=== PATIENT | female | born 1985 | race Caucasian/White ===

== ENCOUNTER 2016-11-29 03:32 | Inpatient (IN) | payer OTHER ==
[~2016-11-29] VITALS: Ht 162.6 cm; Wt 67.3 kg
[~2016-11-29 03:32] MED LIST: ALBU1AER9 INH; DIPH25TA; PRENTAB26 PO; PYRI1TAB30
[2016-12-03] MEDS ORDERED: LACTATED RINGER'S 1000ML 1,000 ML IV PRN (08:51)
[2016-12-03] MEDS ORDERED: MISOPROSTOL 25 MCG TAB PV ONE (09:00)
--- NOTE | 2016-12-03 09:27 | Progress Note ---
Progress Note Date of Service December 03, 2016. Progress Note Admit note 31 F P1001 at 40.4 weeks with induction of labor for post dates. GBS negative. FHT Cat 1. cervix 2/50/-2/vertex/soft/posterior. EFW 7-7.5 lbs. Will start induction with Cytotec vaginally.
[2016-12-03] MEDS ORDERED: FERR1TAB23 PO (10:08)
[2016-12-03] MEDS ORDERED: CALC500C3 (10:12)
[2016-12-03] MEDS ORDERED: DOXY30TA PO (10:12)
[2016-12-03 10:15] VITALS: Ht 162.6 cm; Wt 67.3 kg
[2016-12-03 10:20] LABS: HEMATOCRIT 35.6 % (37-47); MEAN CORPUSCULAR HEMOGLOBIN 28.5 pg (25-34); MEAN PLATELET VOLUME 8.7 fL (7.4-10.4); PLATELET COUNT 223 K/uL (130-400); WHITE BLOOD COUNT 7.63 K/uL (4.8-10.8)
--- NOTE | 2016-12-03 10:35 | Progress Note ---
Progress Note Date of Service December 03, 2016. Progress Note Cytotec 25 mcg inserted in vagina. T Cat 1
[2016-12-03] MEDS ORDERED: LACTATED RINGER'S 1000ML 500 ML IV PRN ×2 (14:59→20:51)
[2016-12-03] MEDS ORDERED: OXYTOCIN 30 UNITS/500ML NSS IV PRN (15:00)
--- NOTE | 2016-12-03 15:00 | Progress Note ---
Progress Note Date of Service December 03, 2016. Progress Note cervix /2 FHT Cat 1 will start oxytocin to augment contractions
[2016-12-03] MEDS: LACTATED RINGER'S 1000ML 1,000 ML IV SCH ×2 (15:03→23:38)
--- NOTE | 2016-12-03 19:13 | Progress Note ---
Progress Note Date of Service December 03, 2016. Progress Note cervix -/-2 T Cat 1
[2016-12-03] MEDS ORDERED: BUPIVACAINE 0.25% 30 ML VIAL ONE (19:15)
[2016-12-03] MEDS ORDERED: EpHEDrine SULFATE INJ 50 MG/ML AMP ONE (19:15)
[2016-12-03] MEDS ORDERED: FENTANYL 2MCG/ML ROPIV 1.25MG/ML 100ML BAG EPI ONE (19:15)
[2016-12-03] MEDS ORDERED: FENTANYL CITRATE INJ 50 MCG/1 ML 2 ML VIAL ONE (19:16)
[2016-12-03] MEDS ORDERED: NALOXONE HCL INJ 1 MG in SODIUM CHLORIDE 0.9% 1000ML 1,000 ML IV PRN (20:51)
[2016-12-03] MEDS ORDERED: DiphenhydrAMINE HCL 50 MG/ML VIAL IV PRN (21:00)
[2016-12-03] MEDS ORDERED: ONDANSETRON INJ 2 MG/ML 2 ML VIAL IV PRN (21:00)
[2016-12-03] MEDS ORDERED: PROMETHAZINE HCL INJ 6.25 MG in SODIUM CHLORIDE 0.9% 50ML 50 ML IV PRN (21:00)
[2016-12-03] MEDS ORDERED: NALBUPHINE HCL INJ 10 MG/ML AMP IV PRN (21:00)
[2016-12-03] MEDS ORDERED: NALOXONE HCL INJ 0.4 MG/1 ML VIAL/CARP IV PRN (21:00)
[2016-12-03] MEDS ORDERED: EpHEDrine SULFATE INJ 50 MG/ML AMP IV PRN (21:00)
[2016-12-03] MEDS ORDERED: FENTANYL 2MCG/ML ROPIV 1.25MG/ML 100ML BAG EPI PRN (21:00)
--- NOTE | 2016-12-03 21:28 | Progress Note ---
Progress Note Date of Service December 03, 2016. Progress Note cervix -/-1 FHT Cat 1 AROM clear fluid
[2016-12-04] MEDS ORDERED: LACTATED RINGER'S 1000ML 1,000 ML IV SCH (01:48)
--- NOTE | 2016-12-04 01:56 | Vaginal Delivery Summary ---
Vaginal Delivery Summary Delivery Note live male over intact perineum LIANE with nuchal cord x1 reduced at delivery. Apgars 8/9 weight pending. Delayed cord clamping followed by cord blood collection. Spontaneous delivery of placenta. No tears. Final sponge and instrument count are correct. EBL 200 ml. Mom and baby stable.
[2016-12-04] MEDS ORDERED: SUPERCREAM 0.870 % 15GM JAR EXT PRN (02:00)
[2016-12-04] MEDS ORDERED: OXYTOCIN 30 UNITS/500ML NSS IV PRN (02:00)
[2016-12-04] MEDS ORDERED: BENZOCAINE 20% AER SPR 82.5 GM CAN EXT PRN (02:00)
[2016-12-04] MEDS ORDERED: LANOLIN OINT EXT PRN ×2 (02:00)
[2016-12-04] MEDS ORDERED: ACETAMINOPHEN 325 MG TAB PO PRN (02:00)
[2016-12-04] MEDS ORDERED: HYDROCORTISONE ACETATE 25 MG SUPP PR PRN (02:00)
--- NOTE | 2016-12-04 02:45 | Anesthesia Procedure Note ---
Anesthesia Epidural Removal Nt Date & Time December 04, 2016 at 02:46 Vital Signs Pain Intensity: 0.0 Notes Mental Status: alert / awake / arousable, participated in evaluation Nausea / Vomiting: adequately controlled Pain: adequately controlled Airway Patency, RR, SpO2: stable & adequate BP & HR: stable & adequate Hydration State: stable & adequate Neuraxial Anesthesia: was administered Anesthetic Complications: no major complications apparent, pt satisfied with anesthetic care Epidural: removed without complications, with tip intact
[2016-12-04 04:25] VITALS: BP 113/61; PULSE 89; TEMP 36.5
[2016-12-04] MEDS: IBUPROFEN 600 MG TAB PO PRN ×4 (04:26→19:56)
[2016-12-04 08:05] VITALS: BP 104/71; PULSE 84; TEMP 36.7; O2SAT 96
[2016-12-04] MEDS: DOCUSATE SODIUM 100 MG CAP PO SCH ×2 (08:26→19:56)
[2016-12-04] MEDS: PRENATAL VITAMIN TAB PO SCH (08:26)
[2016-12-04] MEDS: FERROUS SULFATE 325 MG TAB PO SCH (08:26)
[2016-12-04 11:15] VITALS: BP 123/77; PULSE 87; TEMP 36.8; O2SAT 98
[2016-12-04] MEDS: OXYCODONE/ACETAMINOPHEN 5-325 TAB PO PRN ×3 (11:43→18:30)
[2016-12-04 15:35] VITALS: BP 117/64; PULSE 86; TEMP 36.3
[2016-12-04] MEDS ORDERED: BISACODYL 5 MG TABEC PO SCH (20:00)
[2016-12-04 20:05] VITALS: BP 111/74; PULSE 88; TEMP 36.4; O2SAT 98
[2016-12-04 23:35] VITALS: BP 111/69; PULSE 86; TEMP 36.7; O2SAT 98
[2016-12-05] MEDS: IBUPROFEN 600 MG TAB PO PRN ×3 (00:33→12:26)
[2016-12-05] MEDS ORDERED: BISACODYL 10 MG SUPP PR PRN (07:00)
[2016-12-05 07:30] VITALS: BP 116/76; PULSE 73; TEMP 36.6; O2SAT 100
[2016-12-05] MEDS: PRENATAL VITAMIN TAB PO SCH (07:31)
[2016-12-05] MEDS: DOCUSATE SODIUM 100 MG CAP PO SCH (07:31)
[2016-12-05] MEDS: FERROUS SULFATE 325 MG TAB PO SCH (07:31)
[2016-12-05] MEDS ORDERED: MEASLES, MUMPS & RUBELLA VIRUS VIAL SQ. ONE (09:00)
[2016-12-05] MEDS ORDERED: DIPHTHERIA/TETANUS/PERTUSSIS 0.5 ML SYR/VIAL IM. ONE (09:00)
--- NOTE | 2016-12-05 10:12 | OB/GYN Progress Note ---
ADMINISTRATOR OF HOME HEALTH Progress Note Date of Service December 05, 2016. Subjective conversation w/ patient, physical exam Ambulation: ambulating normally Voiding: no voiding problems Passing Gas: Yes Diet Tolerance: Regular Diet Lochia: Moderate Feeding Type: Breast Feeding Review of Systems Constitutional: No chills, No fatigue, No fever, No problem reported, No sweats , No weakness, No weight loss Respiratory: No cough, No dyspnea at rest, No dyspnea on exertion, No hemoptysis, No problem reported, No shortness of breath, No sputum, No wheezing Cardiac: No PND, No chest pain, No claudication, No edema, No orthopnea, No palpitations, No problem reported Breast: No breast lump, No breast pain, No change in shape, No nipple discharge , No problem reported, No see HPI Abdomen: No GI bleeding, No constipation, No diarrhea, No nausea, No pain, No problem reported, No vomiting Female : No abnormal vaginal bleeding, No dysuria, No hematuria, No incontinence, No problem reported, No see HPI, No urinary frequency, No vaginal discharge Objective Vital Signs Date Time Temp Pulse Resp B/P Pulse Ox O2 Delivery O2 Flow Rate FiO2 12/05/16 07:30 Room Air 12/05/16 07:30 36.6 73 20 116/76 100 Room Air 12/04/16 23:35 36.7 86 16 111/69 98 Room Air 12/04/16 23:35 98 Room Air 12/04/16 20:05 Room Air 12/04/16 20:05 36.4 88 18 111/74 98 Room Air 12/04/16 15:35 36.3 86 18 117/64 Room Air 12/04/16 15:35 Room Air 12/04/16 11:15 36.8 87 20 123/77 98 Room Air Physical Exam General Appearance: WELL-APPEARING, WD/WN, NO APPARENT DISTRESS Respiratory/Chest: chest non-tender, lungs clear, normal breath sounds, no respiratory distress, no accessory muscle use Cardiovascular: regular rate, rhythm, no edema, no gallop, no JVD, no murmur Abdomen: normal bowel sounds, non tender, soft, no organomegaly, no pulsatile mass Fundus: Firm Extremities: normal range of motion, non-tender, normal inspection, no pedal edema, no calf tenderness Laboratory Results Last 24 Hours Test 12/05/16 06:54 Hemoglobin 9.0 g/dL Hematocrit 27.0 % Assessment and Plan Day Number: 1 Continue Routine Care: PPD #1 pt doing well wishes to go home today disch home with instructions
[2016-12-05] MEDS ORDERED: MTR600X PO (10:16)
--- NOTE | 2016-12-05 10:19 | Discharge Instructions ---
Discharge Instructions Date of Service December 05, 2016. Admission Reason for Admission: Induction Discharge Discharge Diagnosis / Problem: Discharge Goals Goal(s): Routine recovery after delivery Activity Recommendations Activity Limitations: as noted below ACTIVITY RECOMMENDATIONS: * Gradual return to full activity over the next 2-3 weeks. * No lifting - nothing heavier than baby over the next 2-3 weeks. * Do not engage in vigorous exercise, sexual activity or sports until cleared by your physician. * Do not drive or operate any motorized equipment until cleared by your physician. * You may shower/bathe daily. BREAST CARE: If you are not breast feeding: * Wear a supportive bra 24 hours a day for one to two weeks. * Avoid stimulating your breasts and nipples as much as possible during the first few weeks after delivery. * When taking a shower, have the warm water hit your back, not breasts. * When your breasts feel full, apply ice packs. Usually three to four times a day helps ease the discomfort. * Take a mild pain medication (Tylenol/Motrin) when you are uncomfortable. If breast feeding: * Use breast milk to lubricate nipples. Lansinoh cream may be used for sore nipples. You do not need to remove cream prior to breast feeding. If using a different brand of cream, check the label for directions regarding removal of cream prior to nursing. * Wear a supportive bra. * If having problems with breasts or breast feeding, call a clinical consultant or your health care provider. EPISIOTOMY CARE: After delivery, if you have an episiotomy (stitches), the following steps will ease discomfort and aid healing. * For the first 24 hours after delivery, place ice packs next to your episiotomy to help reduce swelling. * After the first 24 hour-period, sitz baths, either portable or in the tub, are suggested. A shower with a shower arm sprayed over the episiotomy may be comforting. * Jennyfer care should be done after each voiding and bowel movement. Squirt warm water from a plastic bottle over the perineum (region of the body between the anus and urinary opening) and pat dry. * Use Dermoplast to ease discomfort. Shake container. [place] directly over the episiotomy. * Place a Tucks on a clean sanitary pad next to your episiotomy. OVER THE COUNTER MEDICATION: * For discomfort or pain, you may use Acetaminophen (Tylenol), Ibuprofen (Advil ), or Naproxen (Aleve) following the package directions. * For constipation you may use Colace following the package directions. SPECIAL CARE INSTRUCTIONS: When you are discharged from the hospital, it is important for you to follow the instructions listed below: * During the first week at home, you should be able to care for yourself and your baby. In addition, the usual light household activities are encouraged. * Limit your activities to the way you feel. Do not try to clean the house or move furniture. Be sensible. * If you actively engage in sports and have done so up until the time of your delivery, you may resume these activities as soon as you feel able. This may take up to one month or even longer. Use good judgment. * Continue to take your vitamins for at least six weeks after the of your baby. * Your diet need not be limited unless you were on a special diet before your delivery. Breast-feeding mothers need around 2500 calories per day and at least 64-80 ounces of fluid per day (8 to 10 glasses). * You should eat foods from the four major food groups. Crash diets or fad diets are to be avoided. Eating lean meats, fresh fruits and vegetables, low-fat dairy products, high fiber foods and a regular exercise program, will help you get back to your pre- weight without putting your health at risk. * Constipation is sometimes a problem after delivery. Take a mild laxative as needed. If breast feeding, Milk of Magnesia is acceptable to use. You may use a suppository or Fleets enema if no episiotomy. * A daily shower or tub bath is suggested. Be sure to thoroughly and gently dry the perineum. * A bloody vaginal discharge will usually continue until around four weeks post . A small amount of bleeding may continue for as long as six weeks. Vaginal discharge changes from the bright red bleeding after delivery to pink then brownish and finally yellowish-pink before becoming white and disappearing. * Bleeding may increase with activity. Your first period may come in 4-8 weeks. If you are breast feeding, your period may be delayed even longer. * [place] (sex) can begin whenever both you and your partner feel comfortable and do not have any form of genital infection. It is recommended that you wait until after your return appointment and discuss with your physician. If you have questions, please talk to your health care practitioner. A condom should be used to prevent infection and . * Foreplay, gentle intercourse and lubrication is very important the first several times to prevent pain. A water-based lubricant such as K-Y jelly or Astroglide may be used. * Tampons may be used six weeks after delivery. * Douching should be avoided for 6 weeks after delivery. * If you have RH negative blood and your baby is RH positive, you will receive RHOGAM by injection prior to discharge. The nurse will give you a card to keep with you that has the date and place that you received RHOGAM after delivery. * During your care, you had a Rubella screen done to check for the presence of rubella antibodies in your blood. If your test was negative, you will receive a Rubella vaccine prior to discharge. This vaccine may cause a fever, soreness at the injection site and flu-like symptoms. If these symptoms persist, notify your health care practitioner. is not advised for three months after a Rubella vaccine. There is a higher chance of having a baby with defects if conceived within three months of getting the vaccine. * If you were discharged 24 hours from delivery or before 48 hours: Visiting nurses will come to your home 48 hours after discharge to assess you and your baby. The visiting nurse will meet with you while you are in the hospital to arrange a time and get directions to your home. * Verbalizes understanding of car seat law as reviewed with patient nursing. * Car Seat hand-out given and reviewed with patient by nursing. * Shaken baby information reviewed with patient by nursing. Call you doctor if: * Heavy bleeding (saturating several pads an hour) or passing clots the size of your fist. * A fever >101 degrees F (38.3 degrees C) on two occasions four hours apart and/or chills. * Unusual pain in the pelvic or vaginal areas. * "Baby Blues" lasting longer than two weeks. If you have any questions or concerns, call your health care practitioner at . FOLLOW-UP VISIT: * Please call the office at to schedule a 6 week examination. It is important you keep this appointment. * It is important for you to make arrangements for either yearly or twice yearly check-ups thereafter. . Current Hospital Diet Patient's current hospital diet: Regular OB Diet Discharge Diet Recommended Diet: Regular Diet Pending Studies Studies pending at discharge: no Medical Emergencies . Who to Call and When: Medical Emergencies: If at any time you feel your situation is an emergency, please call 911 immediately. . Non-Emergent Contact Non-Emergency issues call your: Specialist . . "Provider Documentation" section prepared by Carlos Posada. . VTE Core Measure Inpt VTE Proph given/why not?: Treatment not indicated
[2016-12-05 13:38] VITALS: BP_DIAS 76; PULSE 73; TEMP 36.6
[2016-12-23] MEDS ORDERED: IBUP-1450 PO (15:29)
[2016-12-25] MEDS ORDERED: IBUP-1450 PO (17:10)
[2016-12-25] MEDS ORDERED: METO-157 PO (17:10)
[2016-12-25] MEDS ORDERED: OXYC-57 PO (17:13)
== END 2016-12-05 14:20 | disposition home or self-care (01) | DRG 775 ==
LOC: C.LD 12-03 07:51 → C.OBG 12-04 04:35
PROVIDERS: ADMIT Obstetrics & Gynecology; ATTEND Obstetrics & Gynecology
PROC: 3E0P7GC Introduction of Other Therapeutic Substance into Female Reproductive, Via Natural or Artificial Opening (ICD-10-PCS; principal; 2016-12-03)
PROC: 10907ZC Drainage of Amniotic Fluid, Therapeutic from Products of Conception, Via Natural or Artificial Opening (ICD-10-PCS; principal; 2016-12-03)
PROC: 10E0XZZ Delivery of Products of Conception, External Approach (ICD-10-PCS; 2016-12-04)
DX: O48.0 Post-term pregnancy (principal); O69.81X0 Labor and delivery complicated by cord around neck, without compression, not applicable or unspecified; Z3A.40 40 weeks gestation of pregnancy; Z37.0 Single live birth

== ENCOUNTER 2016-12-25 05:27 | Observation (INO) | payer OTHER ==
[~2016-12-25] VITALS: Ht 162.6 cm; Wt 55.0 kg
[2016-12-25] VITALS (7 sets, daily range): BP systolic 102–119; BP diastolic 58–71; PULSE 76–100; TEMP 36.4–36.9; O2SAT 97–100; Ht 162.6 cm; Wt 55.0 kg
[~2016-12-25 05:27] MED LIST changes: -DIPH25TA; +FERR1TAB23 PO; +IBUP-1450 PO; -PYRI1TAB30
[2016-12-25] MEDS ORDERED: LACTATED RINGER'S 1000ML 1,000 ML IV SCH ×3 (06:00→17:15)
[2016-12-25] MEDS ORDERED: GENTAMICIN INJ 80 MG in DEXTROSE 5% 100ML 100 ML IV SCH ×2 (06:00→11:00)
[2016-12-25] MEDS ORDERED: CLINDAMYCIN 600 MG/54 ML D5W 50 ML IV SCH (06:00)
[2016-12-25] MEDS ORDERED: CLINDAMYCIN TOP (06:11)
[2016-12-25] MEDS ORDERED: AZLCR30 TOP (06:11)
[2016-12-25] MEDS ORDERED: FENTANYL CITRATE INJ 50 MCG/1 ML 2 ML VIAL ONE ×2 (06:48→08:33)
[2016-12-25] MEDS ORDERED: PROPOFOL IV EMULSION 10 MG/ML 20 ML VIAL IV ONE ×2 (06:48→08:37)
[2016-12-25] MEDS ORDERED: ONDANSETRON INJ 2 MG/ML 2 ML VIAL ONE ×2 (06:48→08:06)
[2016-12-25] MEDS ORDERED: MIDAZOLAM HCL 1 MG/ML 2ML VIAL ONE (06:48)
[2016-12-25] MEDS ORDERED: LIDOCAINE HCL 2% 2 ML VIAL (20MG/ML) ONE (06:48)
[2016-12-25] MEDS ORDERED: DEXAMETHASONE SOD INJ 4 MG/ML VIAL ONE (06:48)
[2016-12-25] MEDS ORDERED: MISOPROSTOL 200 MCG TAB PV STA (06:51)
--- NOTE | 2016-12-25 07:06 | History & Physical Bridge Note ---
H&P Re-Evaluation Bridge Note: I have examined the patient, reviewed the History & Physical and in the interval since the performance of the History & Physical I have noted the following changes of clinical significance: No changes noted
[2016-12-25] MEDS ORDERED: CARBOPROST TROMETHAMINE 250 MCG/ML AMP ONE (07:15)
[2016-12-25] MEDS ORDERED: ONDANSETRON INJ 2 MG/ML 2 ML VIAL IV PRN ×3 (07:45→11:30)
[2016-12-25] MEDS ORDERED: PROMETHAZINE HCL INJ 12.5 MG in SODIUM CHLORIDE 0.9% 50ML 50 ML IV PRN ×3 (07:45→11:30)
[2016-12-25] MEDS ORDERED: EpHEDrine SULFATE INJ 50 MG/ML AMP IV PRN ×2 (07:45→11:30)
[2016-12-25] MEDS ORDERED: FENTANYL CITRATE INJ 50 MCG/1 ML 2 ML VIAL IV PRN (07:45)
[2016-12-25] MEDS ORDERED: FLUMAZENIL 0.1 MG/1 ML 10 ML VIAL IV PRN ×2 (07:45→11:30)
[2016-12-25] MEDS ORDERED: NALOXONE HCL 0.4 MG/1 ML VIAL/CARP IV PRN ×2 (07:45→11:30)
[2016-12-25] MEDS ORDERED: ATROPINE SULFATE 0.1 MG/ML 5ML SYR IV PRN ×2 (07:45→11:30)
[2016-12-25] MEDS ORDERED: PHENYLEPHRINE 100MCG/ML 5ML SYR ONE (07:51)
[2016-12-25] MEDS ORDERED: EpHEDrine SULFATE INJ 50 MG/ML AMP ONE (08:01)
[2016-12-25] MEDS ORDERED: NEOSTIGMINE METHYLSULFATE 5 MG/5 ML SYR ONE (08:37)
[2016-12-25] MEDS ORDERED: CISATRACURIUM BESYLATE IV SOLN 2 MG/ML 10 ML VIAL ONE (08:37)
[2016-12-25] MEDS ORDERED: GLYCOPYRROLATE INJ 0.2 MG/ML VIAL ONE (08:37)
[2016-12-25] MEDS ORDERED: BUPIVACAINE/EPINEPHRINE 0.5% MPF 1:200,000 30 ML VIAL ONE (08:56)
--- NOTE | 2016-12-25 09:09 | DIAGNOSTIC IMAGING REPORT ---
INTRAOPERATIVE PELVIC ULTRASOUND NO CHARGE CLINICAL HISTORY: RETAINED PRODUCTS OF CONCEPTION COMPARISON STUDY: No previous studies for comparison. FINDINGS: Intraoperative guidance was provided by the x ray technologist, during a D&E.. There was no radiologist input. IMPRESSION: Intraoperative ultrasound guidance was provided by the x ray technologist. Electronically signed by: Aaron Christensen M.D. 12/25/2016 9:08 AM Dictated Date/Time: 12/25/2016 9:06 AM
[2016-12-25] MEDS ORDERED: METHYLERGONOVINE MALEATE 0.2 MG/ML AMP ONE (10:22)
[2016-12-25] MEDS ORDERED: METHYLERGONOVINE MALEATE 0.2 MG/ML AMP IM ONE (10:26)
[2016-12-25] MEDS ORDERED: OXYTOCIN INJ 10 UNITS/ML VIAL ONE (10:44)
[2016-12-25] MEDS ORDERED: CLINDAMYCIN PHOS 150 MG/ML 2 ML VIAL ONE (11:07)
[2016-12-25] MEDS ORDERED: FLOSEAL HEMOSTATIC MATRIX 10ML TOP ONE (11:17)
[2016-12-25] MEDS ORDERED: SODIUM CHLORIDE 0.9% INJ 10 ML VIAL ONE (11:26)
[2016-12-25] MEDS ORDERED: HYDROmorphone INJ 2 MG/ML SYR/VIAL ONE (11:26)
--- NOTE | 2016-12-25 11:26 | [facility] Post Operative Brief Note ---
Immediate Operative Summary Operative Date Dec 25, 2016. Pre-Operative Diagnosis Retained products of placenta Post-Operative Diagnosis Retained products of placenta, uterine perforation Procedure(s) Performed Suction, Dilation and Curettage Under Ultrasound Guidance,Operative Laparoscopy repair of uterine perforation (Dr. Montano) and intraoperative G. Surgery consultation, exploration of bowel (Dr. Shamika Oro), repair of cervical laceration Surgeon Dr. Cash Data Typist Surgeon(s) Leisa Machado, OR nurse Estimated Blood Loss 100 ML Findings Anteflexed 10 week size uterus, SALOONKEEPER adnexa Fluids (cc crystalloids) 2000 ml Specimens Permanent Specimen A: Retained products of Placenta Drains 200 ml urine Anesthesia GETA Complication(s) Uterine perforation, left fallopian tube injury Disposition Recovery Room / PACU
[2016-12-25] MEDS ORDERED: HYDROmorphone INJ 2 MG/ML SYR/VIAL IV PRN (11:30)
[2016-12-25] MEDS ORDERED: KETOROLAC TROMETHAMINE 30 MG/ML VIAL IV. PRN (11:30)
[2016-12-25] MEDS ORDERED: BISACODYL 10 MG SUPP PR PRN (11:30)
[2016-12-25] MEDS ORDERED: PROMETHAZINE HCL INJ 25 MG in SODIUM CHLORIDE 0.9% 50ML 50 ML IV PRN (11:30)
[2016-12-25] MEDS ORDERED: ACETAMINOPHEN 325 MG TAB PO PRN (11:30)
[2016-12-25] MEDS ORDERED: MEPERIDINE HCL 50 MG/ML CARP IV PRN ×2 (11:30)
[2016-12-25] MEDS ORDERED: IV FLUIDS COMPLETED PRN (12:15)
--- NOTE | 2016-12-25 12:28 | Anesthesiology Progress Note ---
Anesthesia Post Op Note Date & Time Dec 25, 2016 at 12:28 Vital Signs Pain Intensity: 3 Vital Signs Past 12 Hours Date Time Temp Pulse Resp B/P (MAP) Pulse Ox O2 Delivery O2 Flow Rate FiO2 12/25/16 12:09 36.4 76 16 108/69 100 Nasal Cannula 2 12/25/16 11:50 65 11 100 12/25/16 11:50 65 11 12/25/16 11:46 115/74 12/25/16 11:45 65 12 100 12/25/16 11:45 66 12 12/25/16 11:41 103/62 12/25/16 11:40 66 10 100 12/25/16 11:40 66 10 12/25/16 11:36 111/70 12/25/16 11:35 69 16 100 12/25/16 11:35 67 16 12/25/16 11:31 114/75 12/25/16 11:30 75 18 100 12/25/16 11:30 79 18 12/25/16 11:26 111/64 12/25/16 11:25 36.1 76 14 111/64 100 Mask 10 12/25/16 06:15 36.7 76 18 102/68 (79) 99 Room Air Notes Mental Status: alert / awake / arousable, participated in evaluation Pt Amnestic to Procedure: Yes Nausea / Vomiting: adequately controlled Pain: adequately controlled Airway Patency, RR, SpO2: stable & adequate BP & HR: stable & adequate Hydration State: stable & adequate Anesthetic Complications: no major complications apparent
[2016-12-25] MEDS ORDERED: HYDROmorphone INJ 1 MG/ML SYR ONE (12:38)
--- NOTE | 2016-12-25 13:25 | OPERATIVE REPORT ---
DATE OF OPERATION: 12/25/2016 PREOPERATIVE DIAGNOSIS: Uterine perforation. POSTOPERATIVE DIAGNOSIS: Same. OPERATIVE PROCEDURE: Diagnostic laparoscopy. SURGEON: Dr. Shamika Oro. IS CONSULTANT: Dr. Cash. ANESTHESIA: General endotracheal anesthesia. ESTIMATED BLOOD LOSS: Zero. IV FLUIDS: See Dr. Cash's dictation. SPECIMENS: See Dr. Cash's dictation. DRAINS: None. OPERATIVE FINDINGS: No evidence of bowel injury. INDICATIONS: Ms. Cruz is a 31-year-old woman who was undergoing a suction D&C post- for retained placenta. I was called intraoperative when there was evidence of uterine perforation with question of bowel injury. PROCEDURE: At the point where I entered the procedure the patient had already had laparoscopic trocars placed. Her uterine perforation was partially closed with Vicryl sutures by Dr. Cash. When I entered I did explore the left and sigmoid colon. The small bowel that was in the region of the pelvis and the cecum and right colon there was no evidence of any bowel injury. Uterine perforation did appear to have caused a left fallopian tube injury. This was being dealt with by Dr. Cash. The procedure was turned back over to Dr. Cash who then finished closure of the uterine perforation. Please see her dictation for the remainder of the procedure. I attest to the content of the Intraoperative Record and any orders documented therein. Any exception s are noted below.
[2016-12-25] MEDS ORDERED: ACETAMINOPHEN IV 100 ML IV PRN (14:00)
--- NOTE | 2016-12-25 15:03 | OB/GYN Progress Note ---
NEWS COMMENTATOR Progress Note Date of Service: Dec 25, 2016. Postop check Patient is seen and examined Feels well, little nausea, no vomiting Pain is under control with meds No CP/ SOB/ Dizziness/ VB/ Leg pain Not OOB yet Tolerating cips Explained about the surgery and findings Discussed about complication and what to expect and recovery She understood All questions were answered Date Time Temp Pulse Resp B/P (MAP) Pulse Ox O2 Delivery O2 Flow Rate FiO2 12/25/16 12:41 68 15 12/25/16 12:41 66 15 103/62 100 12/25/16 12:36 71 15 113/68 100 12/25/16 12:36 74 15 12/25/16 12:31 88 13 126/71 100 12/25/16 12:31 87 13 12/25/16 12:26 67 12 112/70 100 12/25/16 12:26 70 12 12/25/16 12:21 80 9 12/25/16 12:21 77 9 107/73 100 12/25/16 12:16 95 22 12/25/16 12:16 95 22 119/67 100 12/25/16 12:11 67 9 108/69 100 12/25/16 12:11 68 9 12/25/16 12:09 36.4 76 16 108/69 100 Nasal Cannula 2 12/25/16 12:06 79 14 12/25/16 12:06 79 14 110/76 100 12/25/16 12:01 67 12 12/25/16 12:01 67 12 105/66 100 12/25/16 11:56 87 11 12/25/16 11:56 88 11 111/80 100 12/25/16 11:51 68 12 12/25/16 11:51 69 12 105/61 100 12/25/16 11:50 65 11 100 12/25/16 11:50 65 11 12/25/16 11:46 115/74 12/25/16 11:45 65 12 100 12/25/16 11:45 66 12 12/25/16 11:41 103/62 12/25/16 11:40 66 10 100 12/25/16 11:40 66 10 12/25/16 11:36 111/70 12/25/16 11:35 69 16 100 12/25/16 11:35 67 16 12/25/16 11:31 114/75 12/25/16 11:30 75 18 100 12/25/16 11:30 79 18 12/25/16 11:26 111/64 12/25/16 11:25 36.1 76 14 111/64 100 Mask 10 12/25/16 06:15 36.7 76 18 102/68 (79) 99 Room Air PE: General: Alert, orientedx3, NAD CVS: S1S2 RRR Lungs: CTAB Abd: soft, NT, ND, BS+, Incisions C/D/I No VB Ext: NT, no edema, SCD's on AP: 31 yo female s/p 3 weeks ago with retained POC, s/p EUA, Suction, D&C and operative laparoscopy, repair of uterine perforation, exploration of bowels , pod#0 VSS Afebrile doing well Continue to routine postop care Encourage PO intake, may ambulate DC tonight or tomorrow am depending on how does All questions are answered
[2016-12-25] MEDS ORDERED: IBUP-1450 PO (17:10)
[2016-12-25] MEDS ORDERED: METO-157 PO (17:10)
--- NOTE | 2016-12-25 17:11 | Discharge Instructions ---
Discharge Instructions Date of Service Dec 25, 2016. Admission Reason for Admission: Retained Products Of Conception Discharge Discharge Diagnosis / Problem: Suction, D&C, Laparoscopy, exploration of bowels , repair of uterine perfora Discharge Goals Goal(s): Routine recovery after surgery Activity Recommendations Activity Limitations: as noted below Lifting Limitations: no more than 10 pounds Exercise/Sports Limitations: until after follow-up appointment May Resume Sexual Activity: after follow-up appointment Shower/Bathe: keep incision dry Driving or Machine Use: SPECIAL CARE INSTRUCTIONS: * Check temperature twice daily for one week. Report any elevation over 100.4 degrees Fahrenheit (38.0 degrees Celsius). * Call office in the next few days for return appointment. * You may experience some vaginal spotting and/or bleeding, this is normal for one or two weeks and should not alarm you. * Post-operative discomfort may consist of a sore throat, a "bloated" feeling and pain in the shoulders. These are normal symptoms which usually only last for two or three days. FOLLOW UP VISIT: Keep any scheduled doctor appointments. . Current Hospital Diet Patient's current hospital diet: Clear Liquid Diet Discharge Diet Recommended Diet: Regular Diet Procedures Procedures Performed: Suction, Dilation and Curettage Under Ultrasound Guidance,Operative Laparoscopy repair of uterine perforation (Dr. Montano) and intraoperative G. Surgery consultation, exploration of bowel (Dr. Shamika Oro), repair of cervical laceration Pending Studies Studies pending at discharge: no Medical Emergencies . Who to Call and When: Medical Emergencies: If at any time you feel your situation is an emergency, please call 911 immediately. . Non-Emergent Contact Non-Emergency issues call your: Primary Care Provider, Surgeon Call Non-Emergent contact if: temperature is above 100.5, your pain is not controlled, your pain is worsening, your pain is unusual for you, wound has increased drainage, wound has increased redness, wound has increased pain, you have any medication questions . . "Provider Documentation" section prepared by Juan M Cash. . VTE Core Measure Inpt VTE Proph given/why not?: Treatment not indicated
[2016-12-25] MEDS ORDERED: OXYC-57 PO (17:13)
[2016-12-25] MEDS: IBUPROFEN 600 MG TAB PO PRN (18:35)
[2016-12-25] MEDS: OXYCODONE/ACETAMINOPHEN 5-325 TAB PO PRN ×2 (18:36→22:50)
[2016-12-25] MEDS: DOCUSATE SODIUM 100 MG CAP PO SCH (19:24)
[2016-12-25 19:40] LABS: HEMATOCRIT 31.1 % (37-47)
[2016-12-25] MEDS ORDERED: SIMETHICONE 80 MG CHEW PO PRN (20:00)
[2016-12-25] MEDS ORDERED: METOCLOPRAMIDE HCL INJ 5 MG/ML 2 ML VIAL IV PRN (21:30)
[2016-12-26] VITALS: BP 101/63; PULSE 89; TEMP 37; O2SAT 98
[2016-12-26 03:15] VITALS: BP 97/63; PULSE 84; TEMP 37; O2SAT 99
[2016-12-26] MEDS: OXYCODONE/ACETAMINOPHEN 5-325 TAB PO PRN ×3 (03:29→12:35)
--- NOTE | 2016-12-26 05:29 | OB/GYN Progress Note ---
DIRECTOR OF COLLECTIONS Progress Note Date of Service: Dec 26, 2016. Patient is seen and examined. She feels well, no complaints. Mild soreness Pain is under control with oral meds. Ambulating without dizziness Voiding without difficulty Tolerating regular diet with out N&V Flatus neg Bleeding is minimal No fever/ chills/ CP/ SOB/ N&V/ Leg pain Pumping milk Date Time Temp Pulse Resp B/P (MAP) Pulse Ox O2 Delivery O2 Flow Rate FiO2 12/26/16 03:15 37.0 84 16 97/63 (74) 99 Room Air 12/26/16 00:00 37.0 89 16 101/63 (76) 98 Room Air 12/26/16 00:00 98 Room Air 12/25/16 19:25 36.9 93 18 104/58 (73) 98 Room Air 12/25/16 16:20 36.6 81 18 119/66 (83) 100 Room Air 81 12/25/16 16:20 100 Room Air 12/25/16 15:30 84 18 112/68 (83) 98 Room Air 12/25/16 14:40 36.4 78 22 105/64 (78) 99 Room Air 12/25/16 14:00 100 18 115/71 (86) 97 Room Air 12/25/16 13:25 99 Room Air 12/25/16 13:25 36.7 87 18 112/66 (81) 99 Room Air 12/25/16 12:41 68 15 12/25/16 12:41 66 15 103/62 100 12/25/16 12:36 71 15 113/68 100 12/25/16 12:36 74 15 12/25/16 12:31 88 13 126/71 100 12/25/16 12:31 87 13 12/25/16 12:26 67 12 112/70 100 12/25/16 12:26 70 12 12/25/16 12:21 80 9 12/25/16 12:21 77 9 107/73 100 12/25/16 12:16 95 22 12/25/16 12:16 95 22 119/67 100 12/25/16 12:11 67 9 108/69 100 12/25/16 12:11 68 9 12/25/16 12:09 36.4 76 16 108/69 100 Nasal Cannula 2 12/25/16 12:06 79 14 12/25/16 12:06 79 14 110/76 100 12/25/16 12:01 67 12 12/25/16 12:01 67 12 105/66 100 12/25/16 11:56 87 11 12/25/16 11:56 88 11 111/80 100 12/25/16 11:51 68 12 12/25/16 11:51 69 12 105/61 100 12/25/16 11:50 65 11 100 12/25/16 11:50 65 11 12/25/16 11:46 115/74 12/25/16 11:45 65 12 100 12/25/16 11:45 66 12 12/25/16 11:41 103/62 12/25/16 11:40 66 10 100 12/25/16 11:40 66 10 12/25/16 11:36 111/70 12/25/16 11:35 69 16 100 12/25/16 11:35 67 16 12/25/16 11:31 114/75 12/25/16 11:30 75 18 100 12/25/16 11:30 79 18 12/25/16 11:26 111/64 12/25/16 11:25 36.1 76 14 111/64 100 Mask 10 12/25/16 06:15 36.7 76 18 102/68 (79) 99 Room Air Last 24 Hours Test 12/25/16 19:30 Hemoglobin 9.7 g/dL Hematocrit 31.1 % PE: General: Alert, orientedx3, NAD CVS: S1S2 RRR Lungs; CTAB Abd: soft, NT, ND, BS+ good Incisions: Clean, dry, intact minimal spotting Ext; NT, no edema, SCD's on AP: 31 yo s/p EUA, Suction, D&C, Op. Laparoscopy, repair of uterine perf, exploration of bowels, pod# 1 VSS Afebrile doing well H&H stable, morning CBC pending Continue routine postop care Encourage ambulation, PO intake All questions were answered Instructions were given when to call D/C home after CBC and breakfast f/u in office
[2016-12-26] MEDS ORDERED: GENTAMICIN INJ 80 MG in DEXTROSE 5% 100ML 100 ML IV SCH (06:00)
[2016-12-26 06:51] LABS: MEAN CELL VOLUME 90.9 fL (80-100); MEAN CORPUSCULAR HEMOGLOBIN 29.6 pg (25-34); MEAN CORPUSCULAR HGB CONC 32.6 g/dl (32-36); MEAN PLATELET VOLUME 7.9 fL (7.4-10.4); PLATELET COUNT 220 K/uL (130-400); RED BLOOD COUNT 2.97 M/uL (4.2-5.4); WHITE BLOOD COUNT 6.63 K/uL (4.8-10.8)
[2016-12-26 06:55] VITALS: BP 98/61; PULSE 80; TEMP 37; O2SAT 98
[2016-12-26 07:32] LABS: BASO % 0.3 %; BASO ABS # 0.02 K/uL (0-0.2); COMPLETE YES; EOS % 0.8 %; IG% 0.2 %; LYMPH % 52.2 %; LYMPH ABS # 3.46 K/uL (1.2-3.4); MONO % 7.1 %; NEUT % 39.4 %
[2016-12-26] MEDS: DOCUSATE SODIUM 100 MG CAP PO SCH (08:55)
[2016-12-26] MEDS: IBUPROFEN 600 MG TAB PO PRN ×2 (08:57→12:36)
[2016-12-26 11:25] VITALS: BP 98/61; PULSE 80; TEMP 37; O2SAT 98
[2016-12-26 12:05] VITALS: BP 126/72; PULSE 74; TEMP 37; O2SAT 100
--- NOTE | 2016-12-26 12:58 | OPERATIVE REPORT ---
DATE OF OPERATION: 12/25/2016 PREOPERATIVE DIAGNOSIS: The patient is a 31-year-old G2, P2-0-0-2 status post vaginal delivery 3 weeks ago, retained placenta/products of conception. POSTOPERATIVE DIAGNOSIS: Same. PROCEDURES: Exam under anesthesia, suction D&C under ultrasound guidance, intraoperative pathology consult for frozen section and operative laparoscopy, repair of uterine perforation and intraoperative general surgery consultation and exploration of bowel and repair of cervical laceration. SURGEON: Dr. Cash. OFFICE MACHINERY OR EQUIPMENT INSTALLER: OR nurse Heavenly Flaherty and intraoperative consultation by Dr. Oor. ESTIMATED BLOOD LOSS: 100 ml. FLUIDS: 2000 mL of lactated Ringer's. SPECIMENS: Retained placenta and products of conception. DRAINS: 200 mL of urine. ANESTHESIA: General endotracheal. FINDINGS: Examination under anesthesia revealed stage I cystocele and rectocele, small cervix, anteverted anteflexed 10 week size uterus, nonpalpable adnexa. Intraoperative findings normal bowels. Normal right fallopian tube and ovary. Normal uterus except uterine perforation close to left cornua and normal left ovary and injury to the left fallopian tube. COMPLICATIONS: Uterine perforation and left fallopian tube injury. DESCRIPTION OF PROCEDURE: The patient was taken to the operating room where anesthesia was given without difficulty. She was placed in dorsal lithotomy position, prepared and draped in usual sterile fashion. Examination under anesthesia was done with the above findings. The air and hydronic balancing technician was in the room, performed pelvic/ abdominal ultrasound revealing an anteflexed uterus with retained products of conception on the posterior uterine wall close to the left cornu. Weighted speculum was placed in the patient's vagina. Cervix was visualized, grasped with single tooth tenaculum and then the cervical os was already dilated about 1cm. It was checked to be dilated until #31 Nazario dilators under ultrasound guidance. Then #10 plastic suction tip was used and introduced into the uterus under ultrasound guidance. The uterine cavity was suctioned x2, a minimal amount of white tissue was obtained suggesting products of conception. Then a small sharp curette was used to curette the uterine cavity. Tissues were sent for pathology. Ultrasound was being done and pile driving technician noted a tissue left side of the posterior uterine wall. Then the suction was repeated which brought a small membrane like tissue. This small piece was sent to the pathology for frozen section and we awaited for the response. The patient was stable and the bleeding was minimal. Pathologist called me back indicated that this tissue looked like a polyp but no trophoblasts which suggest retained products of conception. He was not sure what it is. He stated it could be fallopian tube and it did not look like intestine. He recommended laparoscopy. Then OR team was noted. The patient was covered with sterile drapes and the instruments were called for diagnostic laparoscopy. The patient was intubated with Anesthesiology team. The patient was prepared and draped in sterile fashion. All the instruments were counted. Her abdominal skin was prepped with ChloraPrep. The bladder was emptied with a straight catheter, 200 mL of urine was obtained. Then the Humi uterine manipulator was placed in the uterine cavity and gloves were changed. Attention was turned to the patient's abdomen where a 12 mm periumbilical skin incision was made and the subcuticular fat tissue was dissected off until the fascia was visualized. The fascia was grasped with 2 Alivia clamps, elevated, and entered sharply with the scalpel and then peritoneum was identified, entered bluntly with the tip of Hemostat and the sutures were placed on the fascial corners and then 12 mm Edna trocar was placed through the incision and the sutures were tied around the trocar and it was fixed. CO2 gas was started. Abdominal pressure was set to be 15 mmHg and then intraabdominal placement was confirmed with the scope. Upon inspection the bowels appeared to be normal. There was minimal to moderate blood in the pelvis. The patient was placed in the Trendelenburg position. Uterus was brought to the midline and then was noted to be a small, about 1 to 1.5 cm injury on the left posterior wall of the uterus close to the left cornu. It was minimally oozing blood and then the rest of the uterus was normal and the right fallopian tube and ovary were normal. Left ovary was normal. The left fallopian tube was noted to be thinned and there was a small part missing in the middle section about 1-2 cm , but it was hemostatic, no bleeding was noted. The decision was made to call general surgery consultation to check for the bowels. Meanwhile pelvis was irrigated with warm normal saline. The uterine perforation was repaired with 0 Polysorb EndoStitch in a running fashion and 2 sutures were placed and then Lapra-Ties were placed. There was still oozing on the corner of the side. Another EndoStitch was placed, but the tissues were very fragile and peeling off. I placed another gentle suture on the perforation site and then irrigated. FloSeal was placed over it to prevent further bleeding. Excellent hemostasis was achieved. Then general surgeon, Dr. Oro scrubbed in. She checked the bowels with a grasper and with no evidence of injury. She the scrubbed out. Then while nursing surgical services director was holding the camera, I completed the curettage from the vagina. Minimal tissue and small blood clots came out and uterine cry sensation was noted. This was done under laparoscopic guidance while watching to the uterus from above. The procedure was ended. There was noted to be her cervix very fragile and lacerated at the tenaculum site. It was repaired with 2-0 Vicryl with [id number] stitches and excellent hemostasis was achieved. Again gloves were changed. Attention was turned to the patient's abdomen. Pelvis and abdomen was checked again to be hemostatic. Decision was made to end the procedure. All the trocars were removed under the scope guidance and CO2 was emptied from the abdomen. The fascial incisions were repaired with 0 Vicryl with single interrupted stitches at the incision site with 0 Vicryl and the skin incisions were closed with 4-0 Monocryl in a subcuticular fashion. The patient was given IM Methergine, IV oxytocin and rectal Cytotec at the end of procedure. The patient remained stable all during surgery. Vital signs stable. She was cleaned and taken out from lithotomy position. She was brought to recovery room in stable condition. At the end of the procedure all sponge, needle and instrument counts were correct x3. The patient was given 900 mg of clindamycin and 80 mg of gentamicin before surgery and then she was given a second dose at the end of surgery. I attest to the content of the Intraoperative Record and any orders documented therein. Any exceptions are noted below. MTDD
== END 2016-12-26 13:00 | disposition home or self-care (01) ==
LOC: C.ACU 05:27 → C.OBG 11:29 → ENRESERV 13:05
PROVIDERS: ADMIT Obstetrics & Gynecology; ATTEND Obstetrics & Gynecology
DX: O73.0 Retained placenta without hemorrhage (principal); J45.30 Mild persistent asthma, uncomplicated; F33.1 Major depressive disorder, recurrent, moderate; Z79.899 Other long term (current) drug therapy

== ENCOUNTER 2017-01-01 21:41 | Emergency (ER) | payer OTHER ==
[~2017-01-01] VITALS: Ht 162.6 cm; Wt 53.9 kg
[~2017-01-01 21:41] MED LIST changes: +AZLCR30 TOP; +CLINDAMYCIN TOP; +METO-157 PO; +OXYC-57 PO
[2017-01-01] MEDS ORDERED: CEFTRIAXONE SOD INJ 1 GM ADDVIAL IV STA (22:11)
[2017-01-01] MEDS ORDERED: ONDANSETRON INJ 2 MG/ML 2 ML VIAL IV STA (22:11)
[2017-01-01] MEDS ORDERED: SODIUM CHLORIDE 0.9% 1000ML 1,000 ML IV STA ×2 (22:15)
[2017-01-01] MEDS ORDERED: CLINDAMYCIN IV 900 MG in DEXTROSE 5% 100ML 100 ML IV ONE (22:15)
--- NOTE | 2017-01-01 22:21 | DIAGNOSTIC IMAGING REPORT ---
CHEST ONE VIEW PORTABLE CLINICAL HISTORY: Sepsis dyspnea COMPARISON STUDY: No previous studies for comparison. FINDINGS: The bones soft tissues and hemidiaphragms are normal. The cardiomediastinal silhouette is normal. The lungs are clear. The pulmonary vasculature is normal. IMPRESSION: Negative chest. Electronically signed by: Dickson Boggs M.D. 01/01/2017 10:20 PM Dictated Date/Time: 01/01/2017 10:20 PM
[2017-01-01] MEDS ORDERED: OPTIRAY 320 IV PRN (22:30)
[2017-01-01] MEDS ORDERED: VNTHFA/IN INH (22:30)
[2017-01-01] MEDS ORDERED: [UNRECOGNIZED DRUG - CODE] TOP (22:30)
[2017-01-01 22:31] VITALS: O2SAT 98; Ht 162.6 cm; Wt 53.9 kg
[2017-01-01] MEDS ORDERED: POLY335019 PO (22:31)
[2017-01-01 22:34] LABS: BASO % 0.2 %; BASO ABS # 0.02 K/uL (0-0.2); COMPLETE YES; HEMATOCRIT 33.3 % (37-47); IG% 0.2 %; LYMPH % 21.8 %; LYMPH ABS # 2.41 K/uL (1.2-3.4); MEAN CELL VOLUME 89.3 fL (80-100); MEAN CORPUSCULAR HEMOGLOBIN 29.2 pg (25-34); MEAN CORPUSCULAR HGB CONC 32.7 g/dl (32-36); MEAN PLATELET VOLUME 8.3 fL (7.4-10.4); MONO % 5.9 %; NEUT % 68.9 %; PLATELET COUNT 295 K/uL (130-400); RED BLOOD COUNT 3.73 M/uL (4.2-5.4); WHITE BLOOD COUNT 11.05 K/uL (4.8-10.8)
[2017-01-01 22:39] LABS: URINE APPEARANCE CLEAR (CLEAR); URINE BILIRUBIN NEG (NEG); URINE COLOR YELLOW; URINE NITRITE NEG (NEG); URINE PH 6.5 (4.5-7.5); URINE SPECIFIC GRAVITY 1.022 (1.000-1.030); UROBILINOGEN NEG (NEG); ZZUR CULT IF INDIC CLEAN CATCH NO
[2017-01-01 22:42] LABS: MANUAL MICROSCOPIC REQUIRED? NO; REVIEW REQ? NO
[2017-01-01 22:43] LABS: ISTAT CREATININE 0.8 mg/dl (0.6-1.3); ISTAT HEMOGLOBIN 11.2 g/dl (12.0-16.0); ISTAT IONIZED CALCIUM 1.11 mmol/l (1.12-1.32)
[2017-01-01 22:45] LABS: INR 0.9 (0.9-1.1)
[2017-01-01 22:52] LABS: BUN/CREATININE RATIO 22.1 (10-20); CALCIUM 8.7 mg/dl (8.5-10.1); CREATININE 0.8 mg/dl (0.60-1.20)
[2017-01-01 22:55] LABS: ALB/GLOB RATIO 1.2 (0.9-2)
--- NOTE | 2017-01-01 23:52 | DIAGNOSTIC IMAGING REPORT ---
CT SCAN OF THE ABDOMEN AND PELVIS WITH IV CONTRAST CLINICAL HISTORY: Fever. Pelvic pain. Reported history of recent surgery and uterine perforation. COMPARISON STUDY: Abdominal CT dated 09/18/2011. TECHNIQUE: Following the IV administration of 93 cc of Optiray 320, CT scan of the abdomen and pelvis is performed from the lung bases to the proximal femora. Images are reviewed in the axial, sagittal, and coronal planes. IV contrast was administered without complication. Automated dose control exposure was utilized. CT DOSE: 262.23 mGy.cm FINDINGS: Lung bases: The heart is normal in size and without pericardial effusion. A fat-containing Bochdalek hernia is seen at the right lung base. The lung bases are otherwise clear. Liver: The contrast-enhanced liver is normal in size, contour, and attenuation. There is no intrahepatic biliary ductal dilatation. The hepatic veins and portal veins are patent. Gallbladder: Unremarkable. Spleen: Normal in size and attenuation. Pancreas: Unremarkable. Adrenal glands: Unremarkable. Kidneys: The contrast enhanced kidneys are normal in size and without hydronephrosis. The kidneys enhance symmetrically. There is a 4 mm nonobstructing left renal calculus. There are least 2 nonobstructing right renal calculi measuring up to 4 mm. Scattered subcentimeter cortical hypodensities likely represent cysts but are too small for definitive characterization. Abdominal vasculature: The abdominal aorta is normal in course and caliber. Bowel: The small bowel and colon are normal in course and caliber. The appendix is well-visualized and normal. Peritoneum: There is trace perihepatic fluid. Trace fluid is also seen in the right lower quadrant. No intraperitoneal free air is seen. No organized fluid collection is identified. Lymphadenopathy: None. Pelvic viscera: The bladder is normal as visualized. The uterus and adnexa are normal as visualized. There are small ovarian follicles. Skeletal structures: No lytic or blastic lesions are seen. IMPRESSION: 1. There are no acute infectious or inflammatory findings in the abdomen or pelvis. 2. The uterus is normal as visualized by CT. No fluid collection is identified in the pelvis. 3. There is trace perihepatic free fluid as well as trace fluid in the pelvis. 4. Small bilateral nonobstructing renal calculi. Electronically signed by: Kwan Navarro M.D. 01/01/2017 11:51 PM Dictated Date/Time: 01/01/2017 11:44 PM
[2017-01-02] MEDS ORDERED: DOXY100C2 PO (01:35)
[2017-01-02] MEDS ORDERED: CLIN300C10 PO (01:35)
[2017-01-02] MEDS ORDERED: DOXYCYCLINE HYCLATE 100 MG CAP PO ONE (01:45)
[2017-01-02] MEDS ORDERED: ONDANSETRON HOME PACK 4MG OD TAB PO ONE (01:45)
[2017-01-02] MEDS ORDERED: CLINDAMYCIN 150MG HOME PACK PO ONE (01:45)
[2017-01-02 02:11] VITALS: BP 118/75; PULSE 92; TEMP 36.5; O2SAT 99
--- NOTE | 2017-01-02 05:34 | EMERGENCY ROOM VISIT NOTE ---
History First contact with patient: 21:50 Chief Complaint: FEVER Stated Complaint: FEVER - 1 WEEK POSTOP History of Present Illness The patient is a 31 year old female who presents to the Emergency Room with complaints of abdominal pain with fever for the past day. Patient had a vaginal delivery one month ago and that resulted with retained products conception and during this procedure 1 week ago she had a uterine perforation with cervical laceration and fallopian tube injury with possible bowel injury. this was repaired by OB. Patient states since then her bleeding was subsiding and then today the bright red bleeding returned that was bright red with a fever and pain with a 100.6 temperature. Patient called the on-call OB was advised to come to the ER. Patient denies chest pain, dyspnea, cough, congestion, back pain, urinary symptoms. No intercourse since procedure. No instrumentation. Review of Systems See HPI for pertinent positives & negatives. A total of 10 systems reviewed and were otherwise negative. Past Medical/Surgical History Medical Problems: (1) Retained placenta after delivery without hemorrhage but with other complication Family History Blood coagulation disorder Diabetes mellitus Gallbladder disease Heart disease Hypertension Social History Smoking Status: Never Smoker Alcohol Use: none Drug Use: none Marital Status: Occupation Status: employed Current/Historical Medications Scheduled Azelaic Acid (Azelex), 1 TOP DAILY Clindamycin Hcl (Clindamycin Hcl), 1 TAB PO QID Clindamycin Phos (Clindamycin Phosphate), 1 APPLN TOP DAILY Doxycycline Hyclate (Vibramycin), 100 MG PO BID Ferrous Sulfate (Iron), 325 MG PO DAILY Multivit/Min/Iron/Fol Ac/Pren ( Vitamin), 1 TAB PO QAM Scheduled PRN Albuterol Hfa (Ventolin Hfa), 2 PUFFS INH Q4 PRN for Wheezing Ibuprofen (Motrin), 600 MG PO Q6H PRN for Pain Oxycodone/Acetaminophen 5MG/325MG (Percocet 5MG/325MG), 1-2 TABLETS PO Q4H PRN for Pain Polyethylene Glycol 3350 (Miralax), 17 GM PO DAILY PRN for Constipation Allergies Coded Allergies: Clavulanic Acid (Verified Allergy, Mild, RASH ITCHING, 01/01/17) Penicillins (Verified Allergy, Mild, AUGMENTIN-RASH ITCHING, 01/01/17) Amoxicillin (Unverified Allergy, Unknown, rash, 01/01/17) Cephalexin (Verified Allergy, Unknown, VOMITING DIARRHEA, 01/01/17) Codeine (Unverified Allergy, Unknown, vomiting, 01/01/17) per patient Physical Exam Vital Signs Date Time Temp Pulse Resp B/P (MAP) Pulse Ox O2 Delivery O2 Flow Rate FiO2 01/02/17 02:11 36.5 92 17 118/75 99 01/02/17 00:50 36.5 90 17 111/75 99 Room Air 01/01/17 23:16 37.0 91 18 108/71 100 Room Air 01/01/17 22:31 98 Room Air 01/01/17 21:45 37.2 98 20 111/69 97 Room Air Pain Rating (0-10): 4.0 Physical Exam VITALS: Vitals are noted on the nurse's note and reviewed by myself. Vital signs stable. GENERAL: Pleasant female, in no acute distress, nondiaphoretic, well-developed well-nourished. SKIN: The skin was without rashes, erythema, edema, or bruising. There is no tenting of the skin. Capillary reflex less than 2 seconds. HEAD: Normocephalic atraumatic. EARS: External auditory canals clear, tympanic membranes pearly stone without erythema or effusion bilaterally. EYES: Pupils equal round and reactive to light and accommodation. Conjunctivae without injection, sclerae without icterus. Extraocular movements intact. NOSE: Patent, turbinates without inflammation or discharge. No sinus tenderness. MOUTH: Mucous membranes moist. Pharynx without erythema or exudate. Uvula midline. Airway patent. Tongue does not deviate. NECK: Supple without nuchal rigidity. No lymphadenopathy. No thyromegaly. Cervical spine is nontender. No JVD. HEART: Regular rate and rhythm without murmurs gallops or rubs. LUNGS: Clear to auscultation bilaterally without wheezes, rales or rhonchi. No dullness to percussion. No retractions or accessory muscle use. ABDOMEN: Positive bowel sounds x 4. Normal tympanic percussion. Soft, incisional site intact without signs of infection, tender to palpation lower abdomen, no CVA tenderness, without masses or organomegaly. Escobar sign negative. No guarding or rebound tenderness. exam: Normal external female genitalia, no blood in the vault, cervical sutures intact with no discharge or odor, digital proofing and platemaker present MUSCULOSKELETAL: No muscle atrophy, erythema, or edema noted. NEURO: Patient was alert and oriented to person place and time. Normal sensation to light and sharp touch. No focal neurological deficits. Medical Decision & Procedures Laboratory Results 01/01/17 22:25 Red Blood Count 3.73, Mean Corpuscular Volume 89.3, Mean Corpuscular Hemoglobin 29.2, Mean Corpuscular Hemoglobin Concent 32.7, Mean Platelet Volume 8.3, Neutrophils (%) (Auto) 68.9, Lymphocytes (%) (Auto) 21.8, Monocytes (%) (Auto) 5.9, Eosinophils (%) (Auto) 3.0, Basophils (%) (Auto) 0.2, Neutrophils # (Auto) 7.62, Lymphocytes # (Auto) 2.41, Monocytes # (Auto) 0.65, Eosinophils # (Auto) 0.33, Basophils # (Auto) 0.02 01/01/17 22:25 Test 01/01/17 22:25 01/01/17 22:27 01/01/17 22:31 White Blood Count 11.05 K/uL (4.8-10.8) Red Blood Count 3.73 M/uL (4.2-5.4) Hemoglobin 10.9 g/dL (12.0-16.0) Hematocrit 33.3 % (37-47) Mean Corpuscular Volume 89.3 fL (80-100) Mean Corpuscular Hemoglobin 29.2 pg (25-34) Mean Corpuscular Hemoglobin Concent 32.7 g/dl (32-36) Platelet Count 295 K/uL (130-400) Mean Platelet Volume 8.3 fL (7.4-10.4) Neutrophils (%) (Auto) 68.9 % Lymphocytes (%) (Auto) 21.8 % Monocytes (%) (Auto) 5.9 % Eosinophils (%) (Auto) 3.0 % Basophils (%) (Auto) 0.2 % Neutrophils # (Auto) 7.62 K/uL (1.4-6.5) Lymphocytes # (Auto) 2.41 K/uL (1.2-3.4) Monocytes # (Auto) 0.65 K/uL (0.11-0.59) Eosinophils # (Auto) 0.33 K/uL (0-0.5) Basophils # (Auto) 0.02 K/uL (0-0.2) RDW Standard Deviation 47.5 fL (36.4-46.3) RDW Coefficient of Variation 14.3 % (11.5-14.5) Immature Granulocyte % (Auto) 0.2 % Immature Granulocyte # (Auto) 0.02 K/uL (0.00-0.02) Prothrombin Time 10.0 SECONDS (9.0-12.0) Prothromb Time International Ratio 0.9 (0.9-1.1) Activated Partial Thromboplast Time 25.7 SECONDS (21.0-31.0) Partial Thromboplastin Ratio 1.0 Urine Color YELLOW Urine Appearance CLEAR (CLEAR) Urine pH 6.5 (4.5-7.5) Urine Specific Endeavor 1.022 (1.000-1.030) Urine Protein NEG (NEG) Urine Glucose (UA) NEG (NEG) Urine Ketones NEG (NEG) Urine Occult Blood NEG (NEG) Urine Nitrite NEG (NEG) Urine Bilirubin NEG (NEG) Urine Urobilinogen NEG (NEG) Urine Leukocyte Esterase NEG (NEG) Urine WBC (Auto) 1-5 /hpf (0-5) Urine RBC (Auto) 0-4 /hpf (0-4) Urine Hyaline Casts (Auto) 0 /lpf (0-5) Urine Epithelial Cells (Auto) 5-10 /lpf (0-5) Urine Bacteria (Auto) NEG (NEG) Est Creatinine Clear Calc Drug Dose 87.5 ml/min Estimated GFR () 114.7 Estimated GFR (Non- 98.9 BUN/Creatinine Ratio 22.1 (10-20) Calcium Level 8.7 mg/dl (8.5-10.1) Total Bilirubin 0.2 mg/dl (0.2-1) Aspartate Amino Transf (AST/SGOT) 24 U/L (15-37) Alanine Aminotransferase (ALT/SGPT) 35 U/L (12-78) Alkaline Phosphatase 93 U/L (45-117) Total Protein 7.1 gm/dl (6.4-8.2) Albumin 3.8 gm/dl (3.4-5.0) Globulin 3.3 gm/dl (2.5-4.0) Albumin/Globulin Ratio 1.2 (0.9-2) Bedside Lactic Acid Venous 0.53 mmol/L (0.90-1.70) Bedside Hemoglobin 11.2 g/dl (12.0-16.0) Bedside Hematocrit 33 % (37-47) Bedside Sodium 139 mEq/L (135-144) Bedside Potassium 4.1 mEq/L (3.3-5.0) Bedside Chloride 102 mEq/L (101-112) Bedside Total CO2 24 mEq/l (24-31) Anion Gap 18.0 mmol/L (16-25) Bedside Blood Urea Nitrogen 17 mg/dl (7-18) Bedside Creatinine 0.8 mg/dl (0.6-1.3) Bedside Glucose (other) 105 mg/dl (70-99) Bedside Ionized Calcium (Sumit) 1.11 mmol/l (1.12-1.32) Medications Administered Medications (Trade) Dose Ordered Sig/Quan Route Start Time Stop Time Status Last Admin Dose Admin Clindamycin Phosphate 900 mg/ Dextrose 106 ml @ 100 mls/hr ONE ONCE IV 01/01/17 22:15 01/01/17 23:18 DC 01/01/17 23:16 100 MLS/HR Ceftriaxone Sodium (Rocephin Inj) 1 gm NOW STAT IV 01/01/17 22:11 01/01/17 22:13 DC 01/01/17 22:15 1 GM Ondansetron HCl (Zofran Inj) 4 mg NOW STAT IV 01/01/17 22:11 01/01/17 22:13 DC 01/01/17 22:15 4 MG Sodium Chloride 1,000 ml @ 999 mls/hr Q1H1M STAT IV 01/01/17 22:15 01/01/17 23:15 DC 01/01/17 23:16 999 MLS/HR Sodium Chloride 1,000 ml @ 125 mls/hr Q8H STAT IV 01/01/17 22:15 01/02/17 02:35 DC 01/01/17 22:15 125 MLS/HR Doxycycline Hyclate (Vibramycin Cap) 100 mg ONE ONCE PO 01/02/17 01:45 01/02/17 01:46 DC 01/02/17 02:04 100 MG Clindamycin HCl (Cleocin 150MG Home Pack) 1 homepack UD ONCE PO 01/02/17 01:45 01/02/17 01:46 DC 01/02/17 02:04 1 HOMEPACK Ondansetron HCl (ZOFRAN ODT 4MG Home Pack) 1 homepack UD ONCE PO 01/02/17 01:45 01/02/17 01:46 DC 01/02/17 02:04 1 HOMEPACK ED Course Prior records/ancillary studies reviewed. Triage Nursing notes reviewed. Additional history obtained from family The patient's history was concerning for abdominal pain after recent surgery that resulted with a uterine perforation for retained proximal conception. Differential diagnosis: Etiologies such as postsurgical complication, endometritis, appendicitis, diverticulitis, PUD, biliary pathology, UTI, pancreatitis, obstruction, mesenteric ischemia, aortic pathology, infections, inflammatory bowel disease, renal colic, as well as others were entertained. Physical examination findings: As above. ER treatment provided: IV fluids, clindamycin, Rocephin On reassessment the patient felt better. Diagnostics interpreted by me: The labs revealed mild leukocytosis, negative urine Imaging studies: CT SCAN OF THE ABDOMEN AND PELVIS WITH IV CONTRAST CLINICAL HISTORY: Fever. Pelvic pain. Reported history of recent surgery and uterine perforation. COMPARISON STUDY: Abdominal CT dated 09/18/2011. TECHNIQUE: Following the IV administration of 93 cc of Optiray 320, CT scan of the abdomen and pelvis is performed from the lung bases to the proximal femora. Images are reviewed in the axial, sagittal, and coronal planes. IV contrast was administered without complication. Automated dose control exposure was utilized. CT DOSE: 262.23 mGy.cm FINDINGS: Lung bases: The heart is normal in size and without pericardial effusion. A fat-containing Bochdalek hernia is seen at the right lung base. The lung bases are otherwise clear. Liver: The contrast-enhanced liver is normal in size, contour, and attenuation. There is no intrahepatic biliary ductal dilatation. The hepatic veins and portal veins are patent. Gallbladder: Unremarkable. Spleen: Normal in size and attenuation. Pancreas: Unremarkable. Adrenal glands: Unremarkable. Kidneys: The contrast enhanced kidneys are normal in size and without hydronephrosis. The kidneys enhance symmetrically. There is a 4 mm nonobstructing left renal calculus. There are least 2 nonobstructing right renal calculi measuring up to 4 mm. Scattered subcentimeter cortical hypodensities likely represent cysts but are too small for definitive characterization. Abdominal vasculature: The abdominal aorta is normal in course and caliber. Bowel: The small bowel and colon are normal in course and caliber. The appendix is well-visualized and normal. Peritoneum: There is trace perihepatic fluid. Trace fluid is also seen in the right lower quadrant. No intraperitoneal free air is seen. No organized fluid collection is identified. Lymphadenopathy: None. Pelvic viscera: The bladder is normal as visualized. The uterus and adnexa are normal as visualized. There are small ovarian follicles. Skeletal structures: No lytic or blastic lesions are seen. IMPRESSION: 1. There are no acute infectious or inflammatory findings in the abdomen or pelvis. 2. The uterus is normal as visualized by CT. No fluid collection is identified in the pelvis. 3. There is trace perihepatic free fluid as well as trace fluid in the pelvis. 4. Small bilateral nonobstructing renal calculi. Electronically signed by: Kwan Navarro M.D. 01/01/2017 11:51 PM Dictated Date/Time: 01/01/2017 11:44 PM Chest x-ray with no acute consolidation, pneumothorax or free air Consultation: A consultation was placed with the OB, Dr. Velázquez. The case was discussed and diagnostics were reviewed. He recommends treatment for endometriosis with clindamycin and doxycycline with follow up in clinic on Wednesday as scheduled. Family and history seem concerning for endometritis. Patient felt better after being medicated as above. She was started on antibiotics. She is advised no breast-feeding and pump and dump until finished with antibiotics and cleared by [facility]. She was advised light activity only. She is advised to follow-up as scheduled on Wednesday or here in the ER sooner for abdominal pain, high fevers, heavy bleeding, worsening signs or symptoms or as needed. Patient seemed extremely upset with this diagnosis. She was extremely upset over this past month of complications during her vaginal delivery. She was agreeable to treatment plan. She was upset that she could not breast feed. By the evaluation outlined above emergent etiologies such as appendicitis, diverticulitis, PUD, biliary pathology, UTI, pancreatitis, obstruction, mesenteric ischemia, aortic pathology, infections, inflammatory bowel disease, renal colic, as well as others were deemed relatively unlikely. The pt informed about the findings as listed above. All questions were answered and pleased with the treatment. Return instructions were outlined and the patient was discharged in stable condition. Outpatient prescription management: Clindamycin, doxy Referral: The patient was referred back to their [facility] for follow-up in 2 to 3 days for a recheck of the current condition. Case reviewed with my attending Medical Decision As above Impression Primary Impression: Endometritis Departure Information Dispostion Home / Self-Care Condition GOOD Prescriptions Doxycycline Hyclate (VIBRAMYCIN) 100 Mg Cap 100 MG PO BID for 14 Days, #28 CAP Prov: Natalie Velasquez PA-C 01/02/17 Clindamycin Hcl (CLINDAMYCIN HCL) 300 Mg Cap 1 TAB PO QID for 14 Days, #56 TABS Prov: Natalie Velasquez PA-C 01/02/17 Forms HOME CARE DOCUMENTATION FORM, IMPORTANT VISIT INFORMATION Patient Instructions [facility], ED Endometritis Obstetric, Clindamycin capsules, Doxycycline tablets or capsules, Ondansetron oral dissolving tablet Additional Instructions No breast-feeding while on these antibiotics. You must pump and dump. Doxycycline is not safe for your baby. Cleocin 300mg: Take one pill 4 times daily for 14 days for your infection. All antibiotics can cause diarrhea. If this occurs and you feel worse or it does not resolve in 1-2 days follow up with your doctor or return to the Emergency Department as this could be signs of serious underlying problems. If you experience any pain in your tendons or any tendon injury return to the ER for re -evaluation. Any medication can cause an allergic reaction, stop the pills immediately and return to the ER for rash, hives, breathing difficulties, or swelling. Doxycycline 100mg: Take one pill twice daily for 14 days for your infection. Take with food, but avoid dairy. Avoid prolonged sun exposure since this medication makes you temporarily more susceptible to sunburns. All antibiotics can cause diarrhea. If this occurs and you feel worse or it does not resolve in 1-2 days follow up with your doctor or return to the Emergency Department as this could be signs of serious underlying problems. Any medication can cause an allergic reaction, stop the pills immediately and return to the ER for rash, hives, breathing difficulties, or swelling. Acetaminophen(Tylenol) may be used for fever or pain. Use 1000mg every six hours as needed. Avoid using more than 3000mg in a 24 hour period. Controlling your fever with Tylenol as above will make you feel better. Rest and drink plenty of fluids. Avoid strenuous activity. Continue current medications. Return to the ER for heavy vaginal bleeding, chest pain, difficulty breathing, persistent fevers, vomiting, worsening of your condition, or as needed. Follow-up with [facility] in 2-3 days.
== END 2017-01-02 02:12 | disposition home or self-care (01) ==
LOC: C.EDB 21:43
DX: O86.12 Endometritis following delivery (principal); Z83.3 Family history of diabetes mellitus; Z82.49 Family history of ischemic heart disease and other diseases of the circulatory system; Z79.899 Other long term (current) drug therapy

== ENCOUNTER 2017-06-05 11:04 | Emergency (ER) | payer OTHER ==
[~2017-06-05] VITALS: Ht 162.6 cm; Wt 48.3 kg
[~2017-06-05 11:04] MED LIST changes: -ALBU1AER9 INH; +CLIN300C10 PO; -CLINDAMYCIN TOP; +DOXY100C2 PO; -METO-157 PO; +POLY335019 PO; +VNTHFA/IN INH; +[UNRECOGNIZED DRUG - CODE] TOP
[2017-06-05 11:06] VITALS: TEMP 36.8; Ht 162.6 cm; Wt 48.3 kg
[2017-06-05 11:30] VITALS: O2SAT 97
[2017-06-05] MEDS ORDERED: PRED10TA PO (11:40)
[2017-06-05] MEDS ORDERED: AZITTAB PO (11:40)
[2017-06-05] MEDS ORDERED: BCPILLS PO (11:40)
[2017-06-05 12:28] LABS: HEMATOCRIT 38.1 % (37-47); MEAN CELL VOLUME 90.7 fL (80-100); MEAN CORPUSCULAR HEMOGLOBIN 29.8 pg (25-34); MEAN CORPUSCULAR HGB CONC 32.8 g/dl (32-36); MEAN PLATELET VOLUME 8.4 fL (7.4-10.4); PLATELET COUNT 242 K/uL (130-400); WHITE BLOOD COUNT 11.43 K/uL (4.8-10.8)
[2017-06-05 12:57] LABS: BLOOD UREA NITROGEN 13 mg/dl (7-18); BUN/CREATININE RATIO 17.2 (10-20); CALCIUM 8.7 mg/dl (8.5-10.1); CARBON DIOXIDE 29 mmol/L (21-32); CHLORIDE 106 mmol/L (98-107); CREATININE 0.74 mg/dl (0.60-1.20); GLUCOSE 79 mg/dl (70-99); POTASSIUM 3.3 mmol/L (3.5-5.1); SODIUM 140 mmol/L (136-145)
[2017-06-05] MEDS ORDERED: ALBUT/IPRATROP 3MG/0.5MG NEB 3 ML VIAL INH STA (13:05)
[2017-06-05] MEDS ORDERED: KETOROLAC TROMETHAMINE 30 MG/ML VIAL IV STA (13:05)
[2017-06-05 13:17] VITALS: BP 104/66; PULSE 87; O2SAT 100
[2017-06-05] MEDS ORDERED: HYDR5SYP11 PO ×2 (13:28→17:08)
[2017-06-05] MEDS ORDERED: OXYC-57 PO (13:28)
--- NOTE | 2017-06-05 13:30 | EMERGENCY ROOM VISIT NOTE ---
ED Visit Note First contact with patient: 11:32 CHIEF COMPLAINT: Cough 3 weeks HISTORY OF PRESENT ILLNESS: Patient is a 32-year-old white female with past medical history significant for asthma who presents to the emergency department for evaluation of bilateral rib pain with associated cough. She has had symptoms for almost 3 weeks. She states this started with a typical "cold" about 3 weeks ago. She states she typically does get a cough or bronchitis after an upper respiratory illness. She states the cough started about a week and half ago. She was using an albuterol inhaler at home. When her symptoms did not improve, she went to an urgent care center on Wednesday, 5 days ago. They placed her on prednisone. She went back 2 days later, and received a nebulizer treatment in the office which helped for about 4 hours. The urgent care center was unable to provide her with a nebulizer machine at that time due to the . They did give her a spacer for her albuterol inhaler and had her increase from 2 puffs to 4 puffs every 4 hours. She developed right- sided rib pain and the cough was much worse overnight that night, which prompted her to go to her PCPs office yesterday. She had a chest x-ray performed which she is unaware of the results at this time. She was placed on a Z-Beto and has had one dose of the antibiotic, and she was given albuterol nebulizers, which she has been performing every 4 hours. Overnight, she states that the rib pain worsened, and is now bilateral. She describes pain in the lower ribs bilaterally, and coming up into the mid sternal area. It is a constant aching pain that she rates a 6 out of 10, but increases to a 9 out of 10 when she is coughing. She has been taking Tylenol for the rib pain and did take a Percocet that she had left over from a gynecologic surgery last night which did help with the pain and helped her to sleep. Practitioner yesterday discussed the possibility of a pulmonary embolus with her, but felt that it was unlikely. She was however told to seek immediate medical attention if her rib pain worsened. The patient is on a low-dose oral contraceptives as she is presently breast-feeding her 6-month-old. She did travel roughly 8 hours round trip last week to [place]. Her father is positive for factor V Leiden deficiency, but the patient has been tested and does not have any known hypercoagulable state. She denies any calf or leg pain or swelling. She is not a smoker. She has not been running a fever. REVIEW OF SYSTEMS: Review of systems as per HPI. All other systems reviewed were negative. 10 systems reviewed. PMH: Electronic medical records are reviewed and summarized as above/below. See Problem List. SOCIAL HISTORY: Patient lives at home with her and 2 children. Nonsmoker. She is employed. PHYSICAL EXAM: Vital Signs: Reviewed Nurse's notes. Oxygen saturation 98% on room air patient is not tachycardic. Respiratory rate 18 and unlabored. MENTAL STATUS: Patient is a pleasant, well-appearing 32-year-old white female who is awake and alert and in no acute distress. She does have a harsh, deep cough on occasion. HEAD: Atraumatic, without temporal or scalp tenderness. EYES: PERRL, EOMI, no discharge or injection. EARS: Tympanic membranes intact, not inflamed, have normal contour. External canals clear. NOSE: Nares patent, turbinates moist without rhinorrhea. MOUTH: Mucous membranes moist, no lesions, tongue and gums appear normal. THROAT: No pharyngeal injection, exudates, or tonsillar hypertrophy. Airway is patent. NECK: Supple, nontender, no lymphadenopathy. HEART: Regular rate and rhythm without murmurs, ectopy, gallops, or rubs. LUNGS: Clear to auscultation and breath sounds equal, no wheezes, rales, or rhonchi. Ribs are tender to palpation. SKIN: Normal. NEUROLOGICAL: Sensory and motor functions grossly intact. Normal gait. EMERGENCY DEPARTMENT COURSE: The patient was seen and evaluated as above. Old records are reviewed. Treatment options were discussed with the patient. Patient is felt to be very low risk for a PE, given normal vital signs, lack of risk factors, and an upper respiratory/bronchitis illness, which would easily explain her pain. EKG was performed, and documented a normal sinus rhythm at 72 beats per minute, with no ectopy or acute ischemic changes. No significant change from prior EKGs. Treatment options were discussed with the patient and her . They were agreeable to laboratory testing, specifically including a d-dimer, to help rather stratify her risk for a PE, and to determine need for a CT scan of her chest. CBC with, BMP and troponin were also performed. Urine dip was clear and urine test was negative. Repeat chest x-ray was not obtained, she just had one performed yesterday. When she was due at 1300, she was given a DuoNeb treatment. She was also given Toradol 30 mg IV. Laboratory studies note a minimally elevated white count of 11,400, likely related to her recent illness and steroid use. Electrolytes are unremarkable. Troponin is negative. D-dimer is 216. Given the negative d-dimer and lack of risk factors, it was felt that PE was highly unlikely, and not felt that CT scan was indicated. All laboratory and diagnostic imaging studies were reviewed with the patient and her . She did report some relief of her discomfort with the Percocet that she had used last evening, and also stated that it did help her to sleep better. Certainly short-term use of a narcotic and/or a cough syrup with a codeine derivative is reasonable for symptomatic management. She is otherwise covered appropriately with steroids, bronchodilators and antibiotics. She was given a small prescription for Percocet and Hycodan, but instructed to not take them at the same time. She will continue all of the other medications that were previously prescribed for her illness, and was certainly welcome to return to the emergency department at any point if her symptoms are worsening. Patient and her were happy with the plan of care and the outcome of the ED workup, Differential diagnoses include bronchitis, bronchospasm, pneumonia, pulmonary embolus, intercostal neuritis, pleurisy, among others. Medication reconciliation: I attest that I have personally reviewed the patient' s current medication list. Blood pressure screening : Patient was found to have normal blood pressure on screening and does not require follow-up. Patient was reviewed in the [facility] Prescription Drug Monitoring Program, and there were no red flags noted. Problem List Medical Problems: (1) Asthma, Unspecified Status: Chronic (2) Endometritis Status: Resolved (3) Endometritis Status: Resolved (4) Kidney stone Status: Resolved (5) Migraines Status: Chronic (6) Post-dates Status: Resolved (7) Status: Resolved (8) contractions Status: Resolved (9) Retained placenta after delivery without hemorrhage but with other complication Status: Resolved (10) Tachycardia Status: Resolved Surgical Problems: (1) History of dilatation and curettage Status: Resolved (2) History of rhinoplasty Status: Resolved (3) History of wisdom tooth extraction Status: Resolved (4) Status post bunionectomy Status: Resolved Current/Historical Medications Scheduled Azelaic Acid (Azelex), 1 TOP DAILY Azithromycin (Zithromax Z-Beto), 1 PKT PO UD Control Pills ( Control Pills), 1 TAB PO DAILY Clindamycin Phos (Clindamycin Phosphate), 1 APPLN TOP DAILY Multivit/Min/Iron/Fol Ac/Pren ( Vitamin), 1 TAB PO QAM Prednisone (Prednisone), 0 PO UD Scheduled PRN Albuterol Hfa (Ventolin Hfa), 2 PUFFS INH Q4 PRN for Wheezing Hydrocodone W/ Homatropine (Hycodan 5/1.5MG 5 Ml), 10 ML PO Q4H PRN for Cough Hydrocodone W/ Homatropine (Hycodan 5/1.5MG 5 Ml), 10 ML PO Q4H PRN for Cough Oxycodone/Acetaminophen 5MG/325MG (Percocet 5MG/325MG), 1-2 TABS PO Q6 PRN for Pain Allergies Coded Allergies: Clavulanic Acid (Verified Allergy, Mild, RASH ITCHING, 06/05/17) Penicillins (Verified Allergy, Mild, AUGMENTIN-RASH ITCHING, 06/05/17) Amoxicillin (Unverified Allergy, Unknown, rash, 06/05/17) Cephalexin (Verified Allergy, Unknown, VOMITING DIARRHEA, 06/05/17) Codeine (Unverified Allergy, Unknown, vomiting, 06/05/17) per patient Vital Signs Date Time Temp Pulse Resp B/P (MAP) Pulse Ox O2 Delivery O2 Flow Rate FiO2 06/05/17 13:17 87 18 104/66 100 Room Air 06/05/17 11:39 83 06/05/17 11:30 97 Room Air 06/05/17 11:30 97 Room Air 06/05/17 11:06 36.8 96 18 126/82 98 Room Air Laboratory Results 06/05/17 12:07 06/05/17 12:07 Test 06/05/17 12:07 06/05/17 12:14 06/05/17 12:18 Red Blood Count 4.20 M/uL (4.2-5.4) Mean Corpuscular Volume 90.7 fL (80-100) Mean Corpuscular Hemoglobin 29.8 pg (25-34) Mean Corpuscular Hemoglobin Concent 32.8 g/dl (32-36) RDW Standard Deviation 45.8 fL (36.4-46.3) RDW Coefficient of Variation 13.7 % (11.5-14.5) Mean Platelet Volume 8.4 fL (7.4-10.4) Anion Gap 5.0 mmol/L (3-11) Est Creatinine Clear Calc Drug Dose 84.0 ml/min Estimated GFR () 125.1 Estimated GFR (Non- 108.0 BUN/Creatinine Ratio 17.2 (10-20) Calcium Level 8.7 mg/dl (8.5-10.1) Troponin I < 0.015 ng/ml (0-0.045) Bedside D-Dimer 216 ng/mlFEU (0-450) Urine Test NEG (NEG) Medications Administered Medications (Trade) Dose Ordered Sig/Quan Route Start Time Stop Time Status Last Admin Dose Admin Albuterol/ Ipratropium (Duoneb) 3 ml NOW STAT INH 06/05/17 13:05 06/05/17 13:06 DC 06/05/17 13:10 3 ML Ketorolac Tromethamine (Toradol Inj) 30 mg NOW STAT IV 06/05/17 13:05 06/05/17 13:06 DC 06/05/17 13:10 30 MG Departure Information Impression Primary Impression: Bronchitis Additional Impression: Rib pain Prescriptions Hydrocodone W/ Homatropine (HYCODAN 5/1.5MG 5 ML) 1 Syp Syp 10 ML PO Q4H Y for Cough, #100 ML For Initial Treatment Prov: Meghna Fox PA 06/05/17 Oxycodone/Acetaminophen 5MG/325MG (PERCOCET 5MG/325MG) Tab 1-2 TABS PO Q6 Y for Pain, #20 TAB For Initial Treatment Prov: Meghna Fox PA 06/05/17 Hydrocodone W/ Homatropine (HYCODAN 5/1.5MG 5 ML) 1 Syp Syp 10 ML PO Q4H Y for Cough, #200 ML For Initial Treatment Prov: Meghna Fox PA 06/05/17 Referrals Nolvia Ramos D.O. (PCP) Patient Instructions My [facility] Additional Instructions Finish Z-Beto and prednisone as previously prescribed. Continue albuterol nebulizer treatment/albuterol inhaler every 4 hours while awake for the next 5-7 days, then as needed for cough or shortness of breath. Percocet 5/325 mg: Take 1-2 pills every 4-6 hours for breakthrough pain. Avoid alcohol, operating machinery or dangerous equipment, working on ladders or roofs , DRIVING, or situations where being under the influence may be dangerous. It is recommended to use an gwkd-pib-nonygrc stool softener such as Colace, 100mg twice daily while taking this medication to avoid constipation. Ibuprofen(Motrin, Advil) may be used for fever or pain. Use 600mg every six hours as needed. Take with food. Avoid using more than 2400mg in a 24 hour period. Do not use 2400mg per day for more than three consecutive days without physician direction. Prolonged inappropriate use can lead to stomach upset or ulcers. This is available over the counter and typically comes in 200mg tablets. (AND/OR) Acetaminophen(Tylenol) may be used for fever or pain. Use 1000mg every eight hours as needed. Avoid using more than 3000mg in a 24 hour period. This is available over the counter. Hycodan cough syrup: use 5-10 mL every six hours only as needed for severe cough. It is best for use at night since it will cause sedation. This is a narcotic medication. Avoid alcohol, operating machinery or dangerous equipment , working on ladders or roofs, DRIVING, important decision making, or situations where being under the influence may be dangerous. It is recommended to use an rdzk-kes-nwcgnde stool softener such as Colace, 100mg twice daily while taking this medication to avoid constipation. Read all the package inserts or medication information paperwork provided. If you have any questions or concerns call your primary provider, pharmacist or the ER for assistance. Rest and drink plenty of fluids. Avoid strenuous activity until your symptoms resolve and your breathing returns to normal. Continue current medications. Return to the ER for chest pain, difficulty breathing, persistent fevers, vomiting, worsening of your condition, or as needed. Follow up with your primary care physician next week if symptoms are not improving. Problem Qualifiers
== END 2017-06-05 13:45 | disposition home or self-care (01) ==
LOC: C.EDB 11:05 → C.EDA 13:45
DX: J40 Bronchitis, not specified as acute or chronic (principal); R07.81 Pleurodynia; J45.909 Unspecified asthma, uncomplicated; G43.909 Migraine, unspecified, not intractable, without status migrainosus; Z79.3 Long term (current) use of hormonal contraceptives; Z83.2 Family history of diseases of the blood and blood-forming organs and certain disorders involving the immune mechanism; Z87.442 Personal history of urinary calculi

== ENCOUNTER 2017-10-25 09:18 | Observation (INO) | payer OTHER ==
[2017-10-25] VITALS (7 sets, daily range): BP systolic 101–123; BP diastolic 53–82; PULSE 81–94; TEMP 36.6–37.1; O2SAT 97–100; Ht 162.6 cm; Wt 51.3 kg
[~2017-10-25] VITALS: Ht 162.6 cm; Wt 51.3 kg
[~2017-10-25 09:18] MED LIST changes: +AZITTAB PO; +BCPILLS PO; -CLIN300C10 PO; -DOXY100C2 PO; -FERR1TAB23 PO; -IBUP-1450 PO; -POLY335019 PO; +PRED10TA PO
[2017-10-25] MEDS ORDERED: FENTANYL CITRATE INJ 50 MCG/1 ML 2 ML VIAL IV STA ×2 (09:23→10:00)
--- NOTE | 2017-10-25 09:57 | EMERGENCY ROOM VISIT NOTE ---
History Report prepared by Deb: Gunjan Willis Under the Supervision of: Dr. Zara Fernández M.D. 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 The patient was walking down a hill to the mailbox this morning at work. It was raining and her shoes did not have much traction. She slipped and fell. The patient injured her left knee when she fell. She has been unable to move her leg since then and was unable to get up off of the ground. Any movement exacerbates her pain. She was brought to the ED by ambulance for further evaluation. She was given a total of 10mg of morphine en route. This helped her pain slightly and she rates her current pain as an 8/10 in severity. She states that her left toes feel numb but thinks that this is because she is cold and wet after laying outside in the rain waiting for the ambulance. The patient denies any other injury from her fall. She denies LOC, head injury, neck pain, chest pain, shortness of breath, and any chance of . She denies any previous surgeries on the left knee. She does not take any blood thinners. 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 Review of Systems See HPI for pertinent positives & negatives. A total of 10 systems reviewed and were otherwise negative. Past Medical & Surgical Medical Problems: (1) Asthma, Unspecified (2) Endometritis (3) Endometritis (4) Kidney stone (5) Migraines (6) Patellar sleeve fracture of left knee (7) Post-dates (8) (9) contractions (10) Retained placenta after delivery without hemorrhage but with other complication (11) Tachycardia Surgical Problems: (1) History of dilatation and curettage (2) History of rhinoplasty (3) History of wisdom tooth extraction (4) Status post bunionectomy Family History Blood coagulation disorder Diabetes mellitus Gallbladder disease Heart disease Hypertension Social History Smoking Status: Never Smoker Alcohol Use: none Drug Use: none Marital Status: Housing Status: lives with family Occupation Status: employed Current/Historical Medications Scheduled Azelaic Acid (Azelex), 1 APPLN TOP DAILY Clindamycin Phos (Clindamycin Phosphate), 1 APPLN TOP DAILY Fluticasone Propionate (Flovent Hfa), 2 PUFFS INH BID Multivitamin (Multivitamin), 1 TAB PO DAILY Scheduled PRN Albuterol Hfa (Ventolin Hfa), 2 PUFFS INH Q4 PRN for Wheezing Miscellaneous Medications Etonogestrel (Nexplanon) Allergies Coded Allergies: Amoxicillin (Verified Allergy, Intermediate, rash, 10/25/17) Clavulanic Acid (Verified Allergy, Intermediate, RASH ITCHING, 10/25/17) Penicillins (Verified Allergy, Intermediate, AUGMENTIN-RASH ITCHING, ) Cephalexin (Verified Adverse Reaction, Mild, VOMITING DIARRHEA, 10/25/17) Codeine (Verified Adverse Reaction, Mild, vomiting, 10/25/17) per patient Physical Exam Vital Signs Date Time Temp Pulse Resp B/P (MAP) Pulse Ox O2 Delivery O2 Flow Rate FiO2 10/25/17 10:15 108 18 112/68 100 Room Air 10/25/17 09:32 120 22 125/73 96 Room Air Physical Exam Vital signs reviewed. General: Anxious-appearing young female, tearful and in significant pain. HEENT: No scleral icterus, PERRLA, neck supple. Atraumatic. Cardiovascular: Regular rate and rhythm, no extra sounds. Pulmonary: Clear to auscultation bilaterally, normal work of breathing. Abdomen: Soft, nontender, nondistended, positive bowel sounds. Musculoskeletal: Deformity of the left patella with disruption of the distal patellar tendon, NVI distally. Pain with any extension of the knee. Neurologic: Patient awake alert and oriented x 3, full strength in all 4 extremities. Cranial nerves 2 through 12 grossly intact. Skin: Warm, dry, no rash Medical Decision & Procedures ER Provider Diagnostic Interpretation: Radiology results as stated below per my review and radiologist interpretation: L KNEE 2 VIEWS ROUTINE CLINICAL HISTORY: Left knee pain status post trauma COMPARISON: None. DISCUSSION: The knee was imaged in approximate 90 degrees of flexion. No fractures of the distal tibia or fibula are visualized. Evaluation is however slightly limited due to the projection. There is a transverse fracture of the mid patellar pole with 4.5 cm of fracture fragment distraction. IMPRESSION: Distracted transverse fracture of the mid patellar pole. Electronically signed by: Aaron Christensen M.D. 10/25/2017 10:01 AM Dictated Date/Time: 10/25/2017 9:59 AM PELVIS 1 OR 2 VIEW ROUTINE CLINICAL HISTORY: Left pelvic pain COMPARISON STUDY: No previous studies for comparison. FINDINGS: The patient is rotated. No fractures are visualized on the provided image. There are no dislocations. IMPRESSION: Rotated examination. No fractures or dislocations are visualized. Electronically signed by: Aaron Christensen M.D. 10/25/2017 11:57 AM Dictated Date/Time: 10/25/2017 11:56 AM Medications Administered Medications (Trade) Dose Ordered Sig/Quan Route Start Time Stop Time Status Last Admin Dose Admin Fentanyl Citrate (Fentanyl Inj) 50 mcg NOW STAT IV 10/25/17 09:23 10/25/17 09:25 DC 10/25/17 09:34 50 MCG Fentanyl Citrate (Fentanyl Inj) 75 mcg NOW STAT IV 10/25/17 10:00 10/25/17 10:03 DC 10/25/17 10:17 75 MCG Sodium Chloride 1,000 ml @ 80 mls/hr [id number] IV 10/25/17 10:32 11/24/17 10:31 10/25/17 12:34 80 MLS/HR ED Course 0921: Past medical records reviewed. The patient was evaluated in room B7. A complete history and physical examination was performed. 0923: Fentanyl Citrate 50 mcg IV 0959: I discussed the case with Dr. Tapia of [facility] orthopedics. He will come to the ED to evaluate the patient for admission to the hospital. 1000: Fentanyl Citrate 75 mcg IV 1113: I reassessed the patient at this time. She is resting more comfortably. I discussed the results and treatment plan with the patient. I answered all pertaining questions that she had. She expressed understanding and verbalized agreement. 1116: NSS 1000 ml @ 150 mls/hr IV, Zofran 4 mg I, Morphine sulfate 4 mg IV Medical Decision Differential diagnosis: Etiologies such as fracture, dislocation, neurovascular compromise, compartment syndrome, soft tissue injury, as well as others were entertained. This patient was evaluated and appeared to be in significant discomfort. Physical examination reveals a disruption of the left patellar tendon. IV access was obtained by EMS. The patient had been given 2 doses of IV morphine. She did receive IV fentanyl upon arrival to the emergency department. X-ray was performed and reveals a fracture through the patella. Patient complained of some left hip pain, a pelvis x-ray was performed and reveals no evidence of acute fracture. I suspect the patient's pain is due to quadriceps spasm. Patient was given a as needed dose of IV morphine after the fentanyl had worn off. Case was discussed with Dr. Tapia of orthopedic surgery who has agreed to evaluate the patient in the emergency department. Patient's is at the bedside. They are aware of the plan and agree. Medication Reconcilliation Current Medication List: was personally reviewed by me Blood Pressure Screening Patient's blood pressure: Normal blood pressure Consults Time Called: [phone] Consulting Physician: Dr. Tapia Returned Call: [phone] I discussed the case with Dr. Tapia of [facility] orthoped[facility]. He will come to the ED to evaluate the patient for admission to the hospital. Impression Primary Impression: Patella fracture Scribe Attestation The scribe's documentation has been prepared under my direction and personally reviewed by me in its entirety. I confirm that the note above accurately reflects all work, treatment, procedures, and medical decision making performed by me. Departure Information Dispostion Being Evaluated By Surgeon Nolvia Hernandez D.O. (PCP)
--- NOTE | 2017-10-25 10:02 | DIAGNOSTIC IMAGING REPORT ---
L KNEE 2 VIEWS ROUTINE CLINICAL HISTORY: Left knee pain status post trauma COMPARISON: None. DISCUSSION: The knee was imaged in approximate 90 degrees of flexion. No fractures of the distal tibia or fibula are visualized. Evaluation is however slightly limited due to the projection. There is a transverse fracture of the mid patellar pole with 4.5 cm of fracture fragment distraction. IMPRESSION: Distracted transverse fracture of the mid patellar pole. Electronically signed by: Aaron Christensen M.D. 10/25/2017 10:01 AM Dictated Date/Time: 10/25/2017 9:59 AM
[2017-10-25] MEDS ORDERED: SODIUM CHLORIDE 0.9% 1000ML 1,000 ML IV SCH (10:32)
[2017-10-25] MEDS ORDERED: ZOLPIDEM TARTRATE 5 MG TAB PO PRN (10:45)
[2017-10-25] MEDS ORDERED: ONDANSETRON INJ 2 MG/ML 2 ML VIAL IV PRN ×3 (10:45→18:30)
[2017-10-25] MEDS ORDERED: ETON1IMP2 (11:02)
[2017-10-25] MEDS ORDERED: MULT-506 PO (11:02)
[2017-10-25] MEDS ORDERED: FLVHFA110 INH (11:02)
[2017-10-25] MEDS ORDERED: MoRPHine SULFATE 4 MG/ML 1 ML CARP\\VIAL IV STA (11:16)
[2017-10-25] MEDS ORDERED: ONDANSETRON INJ 2 MG/ML 2 ML VIAL IV STA (11:16)
[2017-10-25] MEDS ORDERED: SODIUM CHLORIDE 0.9% 1000ML 1,000 ML IV STA (11:16)
--- NOTE | 2017-10-25 11:58 | DIAGNOSTIC IMAGING REPORT ---
PELVIS 1 OR 2 VIEW ROUTINE CLINICAL HISTORY: Left pelvic pain COMPARISON STUDY: No previous studies for comparison. FINDINGS: The patient is rotated. No fractures are visualized on the provided image. There are no dislocations. IMPRESSION: Rotated examination. No fractures or dislocations are visualized. Electronically signed by: Aaron Christensen M.D. 10/25/2017 11:57 AM Dictated Date/Time: 10/25/2017 11:56 AM
[2017-10-25] MEDS ORDERED: IV FLUIDS COMPLETED PRN (12:00)
[2017-10-25] MEDS ORDERED: NURSING VERBAL MED ORDER ONE (13:00)
[2017-10-25] MEDS: MoRPHine SULFATE 2 MG/ML CARP IV PRN (13:47)
[2017-10-25] MEDS ORDERED: BACITRACIN 50000 UNIT VIAL ONE (15:08)
[2017-10-25] MEDS ORDERED: BUPIVACAINE/EPINEPHRINE 0.5% MPF 1:200,000 30 ML VIAL ONE (15:08)
[2017-10-25] MEDS ORDERED: FENTANYL CITRATE INJ 50 MCG/1 ML 2 ML VIAL ONE (15:44)
[2017-10-25] MEDS ORDERED: LIDOCAINE HCL 2% 2 ML VIAL (20MG/ML) ONE (15:44)
[2017-10-25] MEDS ORDERED: MIDAZOLAM HCL 1 MG/ML 2ML VIAL ONE (15:44)
[2017-10-25] MEDS ORDERED: PROPOFOL IV EMULSION 10 MG/ML 20 ML VIAL IV ONE (15:44)
[2017-10-25] MEDS ORDERED: CLINDAMYCIN 600 MG/54 ML D5W IV ONE (16:42)
--- NOTE | 2017-10-25 16:46 | History and Physical ---
History & Physical Date Oct 25, 2017. Chief Complaint Left patella fracture History of Present Illness The patient is a 32 year old female with complaints of Left patella fracture after a fall in the parking lot this morning Past Medical/Surgical History Medical Problems: (1) Asthma, Unspecified (2) Endometritis (3) Endometritis (4) Kidney stone (5) Migraines (6) Patellar sleeve fracture of left knee (7) Post-dates (8) (9) contractions (10) Retained placenta after delivery without hemorrhage but with other complication (11) Tachycardia Surgical Problems: (1) History of dilatation and curettage (2) History of rhinoplasty (3) History of wisdom tooth extraction (4) Status post bunionectomy Additional History Hepatic Disease: No Endocrine Disorder: No Kidney Disease: No Hypertension: No Heart Disease: No Bleeding Tendencies: No Infectious Diseases: No Allergies Coded Allergies: Amoxicillin (Verified Allergy, Intermediate, rash, 10/25/17) Clavulanic Acid (Verified Allergy, Intermediate, RASH ITCHING, 10/25/17) Penicillins (Verified Allergy, Intermediate, AUGMENTIN-RASH ITCHING, ) Cephalexin (Verified Adverse Reaction, Mild, VOMITING DIARRHEA, 10/25/17) Codeine (Verified Adverse Reaction, Mild, vomiting, 10/25/17) per patient Home Medications Scheduled Azelaic Acid (Azelex), 1 APPLN TOP DAILY Clindamycin Phos (Clindamycin Phosphate), 1 APPLN TOP DAILY Fluticasone Propionate (Flovent Hfa), 2 PUFFS INH BID Multivitamin (Multivitamin), 1 TAB PO DAILY Scheduled PRN Albuterol Hfa (Ventolin Hfa), 2 PUFFS INH Q4 PRN for Wheezing Miscellaneous Medications Etonogestrel (Nexplanon) Physical Examination Skin: warm/dry, no rash Eyes: normal inspection, EOMI, sclerae normal ENT: normal ENT inspection, pharynx normal Head: normocephalic, atraumatic Neck: supple, no adenopathy, trachea midline Respiratory/Chest: lungs clear, normal breath sounds, no respiratory distress Cardiovascular: regular rate, rhythm, no edema, no murmur Abdomen / GI: normal bowel sounds, non tender Back: normal inspection Extremities: + pertinent finding (Swelling and pain left knee) Neurologic/Psych: no motor/sensory deficits, alert, normal reflexes, oriented x 3 Diagnosis Left patella fracture ASA Classification: ASA Class I Plan of Treatment Will go to the OR for ORIF of the patella and stay over night
[2017-10-25] MEDS ORDERED: DEXAMETHASONE SOD INJ 4 MG/ML VIAL ONE (17:08)
[2017-10-25] MEDS ORDERED: ONDANSETRON INJ 2 MG/ML 2 ML VIAL ONE (17:08)
[2017-10-25] MEDS ORDERED: RANITIDINE HCL 25 MG/ML INJ ONE (17:08)
[2017-10-25] MEDS ORDERED: FLUMAZENIL 0.1 MG/1 ML 10 ML VIAL IV PRN (17:45)
[2017-10-25] MEDS ORDERED: ATROPINE SULFATE 0.1 MG/ML 5ML SYR IV PRN (17:45)
[2017-10-25] MEDS ORDERED: NALOXONE HCL 0.4 MG/1 ML VIAL/CARP IV PRN (17:45)
[2017-10-25] MEDS ORDERED: PROMETHAZINE HCL INJ 12.5 MG in SODIUM CHLORIDE 0.9% 50ML 50 ML IV PRN (17:45)
[2017-10-25] MEDS ORDERED: EpHEDrine SULFATE INJ 50 MG/ML AMP IV PRN (17:45)
[2017-10-25] MEDS ORDERED: HYDROmorphone INJ 2 MG/ML SYR/VIAL ONE (17:56)
--- NOTE | 2017-10-25 18:05 | DIAGNOSTIC IMAGING REPORT ---
L KNEE 1 OR 2 VIEWS HISTORY: 32 years-old Female LT ORIF PATELLA status post ORIF of the left knee. Acute patellar fracture of the left knee COMPARISON: Left knee radiographs 10/25/2017 TECHNIQUE: 2 spot fluoroscopic images of the left knee were obtained utilizing 18.1 seconds fluoroscopy time FINDINGS: Status post placement of two cannulated screws within the patella which traverse cranial to caudal and appear intact. There is improved now satisfactory alignment of the previously noted displaced acute patellar fracture. Expected postsurgical soft tissue swelling and deep tissue air about the left knee. No retained foreign body. IMPRESSION: Satisfactory alignment of the patella status post ORIF. The above report was generated using voice recognition software. It may contain grammatical, syntax or spelling errors. Electronically signed by: Darnell Beach M.D. 10/25/2017 6:04 PM Dictated Date/Time: 10/25/2017 6:02 PM
--- NOTE | 2017-10-25 18:18 | [facility] Post Operative Brief Note ---
Immediate Operative Summary Operative Date Oct 25, 2017. Pre-Operative Diagnosis Left patella fracture Post-Operative Diagnosis Left patella fracture Procedure(s) Performed Left Patellar Fracture Open Reduction Internal Fixation Surgeon Dr. Tapia Bench Lathe Operator Surgeon(s) Narinder Shipley PA-C Estimated Blood Loss 10cc Findings Consistent with Post-Op Diagnosis Specimens None Anesthesia Type General Complication(s) none Disposition Disposition: Recovery Room / PACU
[2017-10-25] MEDS ORDERED: METOCLOPRAMIDE HCL INJ 5 MG/ML 2 ML VIAL IV PRN (18:30)
[2017-10-25] MEDS: HYDROmorphone INJ 0.5 MG/0.5 ML SYR IV PRN ×2 (18:32→18:37)
--- NOTE | 2017-10-25 19:27 | Anesthesiology Progress Note ---
Anesthesia Post Op Note Date & Time Oct 25, 2017 at 19:27 Vital Signs Pain Intensity: 3 Vital Signs Past 12 Hours Date Time Temp Pulse Resp B/P (MAP) Pulse Ox O2 Delivery O2 Flow Rate FiO2 10/25/17 19:20 37.2 87 12 115/67 100 Nasal Cannula 2 10/25/17 19:10 92 13 119/65 100 Nasal Cannula 2 10/25/17 19:00 106 12 113/64 100 Nasal Cannula 2 10/25/17 18:50 93 15 113/59 100 Nasal Cannula 2 10/25/17 18:40 104 16 120/66 100 Oxymask 10 10/25/17 18:30 113 22 117/68 100 Oxymask 10 10/25/17 18:23 37.3 115 16 113/60 100 Oxymask 10 10/25/17 15:25 Room Air 10/25/17 12:49 Room Air 10/25/17 12:10 36.9 85 16 101/60 (74) 98 Room Air 10/25/17 11:14 114 16 94/68 99 Room Air 10/25/17 10:49 100 Room Air 10/25/17 10:15 108 18 112/68 100 Room Air 10/25/17 09:32 120 22 125/73 96 Room Air Notes Mental Status: alert / awake / arousable, participated in evaluation Pt Amnestic to Procedure: Yes Nausea / Vomiting: adequately controlled Pain: adequately controlled Airway Patency, RR, SpO2: stable & adequate BP & HR: stable & adequate Hydration State: stable & adequate Anesthetic Complications: no major complications apparent
[2017-10-25] MEDS: POTASSIUM CHLORIDE INJ 10 MEQ in SODIUM CHLORIDE 0.9% 1000ML 1,000 ML IV SCH (20:17)
[2017-10-25] MEDS: KETOROLAC TROMETHAMINE 15 MG/ML VIAL IV. SCH (20:18)
--- NOTE | 2017-10-25 21:07 | OPERATIVE REPORT ---
DATE OF OPERATION: 10/25/2017 PREOPERATIVE DIAGNOSIS: Transverse left patellar fracture. POSTOPERATIVE DIAGNOSIS: Transverse left patellar fracture. PROCEDURE: Open reduction and internal fixation of the left patella. SURGEON: Dr. Ildefonso Tapia. BULB SORTER: Narinder Shipley PA-C whose assistance was necessary for retraction and closure. ANESTHESIA: General. COMPLICATIONS: None. CONDITION: Stable to PACU. IMPLANTS USED: A Synthes 4.5 mm cannulated screws. INDICATIONS: Natacha is a pleasant 32-year-old female who fell in the parking lot this morning on her left flexed knee. She had immediate knee pain. Seen in the Emergency Room where radiographs showed a fractured patella. She elected to undergo operative fixation. OPERATION AND FINDINGS: On October 25, 2017, she was brought to the operating room for the above procedure. She was seen in the preoperative holding area, and the operative extremity was identified and signed. She was given a preoperative antibiotic, taken back to the operating room, laid on the table in supine position, and put under general anesthesia. The left knee was then prepped and draped in sterile fashion, timeout was done, and the patient's operative extremity was properly identified. A longitudinal incision was made directly over the patella. Dissection was taken down through the fascia, and a large hemarthrosis was evacuated. The entire wound was irrigated with pulse lavage. It was a simple transverse fracture. I was able to get a nice reduction with a tenaculum clamp. Two guide pins were placed perpendicular to the fracture and parallel to each other. Placement of the guide pins was checked under fluoroscopy. I was happy with the guide pin placement, and a 3.2 mm drill was used to open up the holes. Two 4.5 mm partially threaded cancellous screws were then placed. This gave a nice compression to the fracture. A single #2 FiberWire was then passed through the cannulated screws in a [id number] fashion and then tied. The knee was then flexed to 100 degrees without much tension on the repair. The retinaculum was then repaired with some 2-0 Vicryl suture. The wound was once again irrigated, and skin was closed with 2-0 Vicryl, 3-0 V-Loc suture, and daniella. She was then placed in a soft dressing and a knee immobilizer. She was then extubated, transferred to a litter, and taken to the postanesthesia care unit in stable condition. She tolerated procedure well. I attest to the content of the Intraoperative Record and any orders documented therein. Any exception s are noted below.
[2017-10-25] MEDS: OXYCODONE/ACETAMINOPHEN 5-325 TAB PO PRN (21:35)
[2017-10-25] MEDS: CLINDAMYCIN IV 600 MG in DEXTROSE 5% 50ML 46 ML IV SCH (23:24)
[2017-10-26] MEDS: KETOROLAC TROMETHAMINE 15 MG/ML VIAL IV. SCH ×3 (01:58→13:45)
[2017-10-26] MEDS: POTASSIUM CHLORIDE INJ 10 MEQ in SODIUM CHLORIDE 0.9% 1000ML 1,000 ML IV SCH ×2 (03:47→14:18)
[2017-10-26 03:55] VITALS: BP 95/51; PULSE 83; TEMP 37.2; O2SAT 97
[2017-10-26] MEDS ORDERED: OXYC-57 PO (07:37)
[2017-10-26] MEDS ORDERED: ASPI-320 PO (07:37)
--- NOTE | 2017-10-26 07:39 | Discharge Instructions ---
Discharge Instructions Date of Service Oct 26, 2017. Admission Reason for Admission: Patellar Sleeve Fracture Of Left Knee Discharge Discharge Diagnosis / Problem: Left patella fracture Discharge Goals Goal(s): Decrease discomfort, Improve function Activity Recommendations Activity Limitations: as noted below . Instructions / Follow-Up Instructions / Follow-Up Immobilizer at all times except shower, may shower in 5 days, follow-up with Dr Tapia in 2 weeks [phone] Current Hospital Diet Patient's current hospital diet: Regular Diet Discharge Diet Recommended Diet: Regular Diet Procedures Procedures Performed: Left Patellar Fracture Open Reduction Internal Fixation Pending Studies Studies pending at discharge: no Medical Emergencies . Who to Call and When: Medical Emergencies: If at any time you feel your situation is an emergency, please call 911 immediately. . Non-Emergent Contact Non-Emergency issues call your: Surgeon Call Non-Emergent contact if: wound has increased drainage, wound has increased redness . "Provider Documentation" section prepared by Ildefonso Tapia. .
[2017-10-26] MEDS: CLINDAMYCIN IV 600 MG in DEXTROSE 5% 50ML 46 ML IV SCH (07:41)
[2017-10-26 07:45] VITALS: BP 100/63; PULSE 84; TEMP 36.8; O2SAT 100
--- NOTE | 2017-10-26 07:47 | Anesthesiology Progress Note ---
Anesthesia Post Op Note Date & Time Oct 26, 2017 at 07:47 Vital Signs Vital Signs Past 12 Hours Date Time Temp Pulse Resp B/P (MAP) Pulse Ox O2 Delivery O2 Flow Rate FiO2 10/26/17 07:45 36.8 84 16 100/63 (75) 100 Room Air 10/26/17 03:55 37.2 83 16 95/51 (66) 97 Room Air 10/25/17 23:25 Room Air 10/25/17 22:35 36.6 92 16 116/56 (76) 97 Room Air 10/25/17 21:35 36.7 94 16 123/63 (83) 98 10/25/17 20:35 37.1 81 18 115/53 (73) 100 Room Air 10/25/17 20:06 36.6 84 16 110/82 (91) 100 Room Air Notes Mental Status: alert / awake / arousable, participated in evaluation Pt Amnestic to Procedure: Yes Nausea / Vomiting: adequately controlled Pain: adequately controlled Airway Patency, RR, SpO2: stable & adequate BP & HR: stable & adequate Hydration State: stable & adequate Anesthetic Complications: no major complications apparent
--- NOTE | 2017-10-26 08:06 | PROGRESS NOTE ---
DATE: 10/26/2017 CHIEF COMPLAINT: Status post open reduction internal fixation of left patellar fracture, postop day #1. PROGRESS: Overall, she is doing fairly well. She feels much better after she has had her patellar fixed. She is lying with the leg in full extension. She does not have too much pain. She was able to get some sleep last night, has no complaints. PHYSICAL EXAMINATION: She has a knee immobilizer in place and legs out in full extension. She has active dorsiflexion and plantarflexion of her left ankle. Sensation is intact throughout. IMPRESSION: Status post open reduction internal fixation of left patellar fracture, postop day #1. PLAN: At this point, she is doing fairly well. She is still , so we want to watch some of the medications. She is taking some Percocet for pain. I do want to give her some aspirin, but she is going to talk to her sock lining stitcher first to make sure it is okay. I do want to make sure I prevent any blood clots, she does have a family history of factor V Leiden deficiency, but she does not have that deficiency. She will be immobilized, but weightbearing as tolerated for up to 6 weeks and I would like to put her on aspirin therapy for 6 weeks to prevent DVT. She will discuss that with her sock lining stitcher. She will get some physical therapy today and she will get fitted for a Zakiya brace. I will see her in the office in 2 weeks.
--- NOTE | 2017-10-26 08:20 | DISCHARGE SUMMARY ---
DISCHARGE DIAGNOSIS: Transverse left patellar fracture. PROCEDURE: ORIF of the left patella on 10/25/[address] Ildefonso Tapia. DISCHARGE INSTRUCTIONS: 1. Aspirin 81 mg daily for 6 weeks, if okay with java j2ee application developer. 2. Percocet 5/325 every 4 hours as needed for pain. 3. Albuterol 2 puffs every 4 hours as needed. 4. Azelex cream daily. 5. Flovent inhaler twice a day. 6. Daily multivitamin. 7. Follow up with Dr. Tapia in 2 weeks. 8. Call the office of Dr. Tapia with any questions or concerns. 9. Weightbear as tolerated while in the immobilizer. HOSPITAL COURSE: Kristi is a pleasant 32-year-old female who fell in a parking lot yesterday on her left flexed knee. She sustained a transverse left patellar fracture. She came to the Emergency Room. Orthopedics was consulted and we admitted her to the hospital for fixation later that day. Later in the afternoon, she was taken to the operating room and underwent an ORIF of the left patella without complication. She had a general anesthetic. Postoperatively, she was then discharged to general orthopedic floor and stayed overnight. Her hospital course was uneventful. On postop day number 1, she was doing well. She had very little pain in the knee. She was able to ambulate well with physical therapy. She was weightbearing as tolerated on the left leg as long as she was in the knee immobilizer. I wanted to do aspirin for DVT prophylaxis, but she will discuss with her java j2ee application developer to make sure it is okay since she is currently . She was subsequently discharged to home with the above instructions and I will see her in the office in 2 weeks.
[2017-10-26 08:22] VITALS: BP 100/63; PULSE 84; TEMP 36.8; O2SAT 100
[2017-10-26] MEDS: OXYCODONE/ACETAMINOPHEN 5-325 TAB PO PRN ×2 (08:50→13:14)
[2017-10-26] MEDS ORDERED: MULTIVITAMIN TAB PO SCH (09:00)
[2017-10-26] MEDS ORDERED: ASPIRIN 81 MG ECTAB PO SCH (09:00)
[2017-10-26 09:48] VITALS: BP 104/55; PULSE 98; O2SAT 99
[2017-10-26] MEDS: MoRPHine SULFATE 2 MG/ML CARP IV PRN (16:57)
== END 2017-10-26 17:27 | disposition home or self-care (01) ==
LOC: EDBD 09:18 → C.EDB 09:19 → C.MSN 10:40 → ENRESERV 11:00
PROVIDERS: ADMIT Orthopaedic Surgery; ATTEND Orthopaedic Surgery
DX: S82.032A Displaced transverse fracture of left patella, initial encounter for closed fracture (principal); W19.XXXA Unspecified fall, initial encounter; J45.909 Unspecified asthma, uncomplicated; F41.9 Anxiety disorder, unspecified; F32.9 Major depressive disorder, single episode, unspecified; Z87.442 Personal history of urinary calculi; Z88.1 Allergy status to other antibiotic agents; Z88.0 Allergy status to penicillin; Z88.5 Allergy status to narcotic agent

== ENCOUNTER → 2018-02-07 | Outpatient (CLI) | payer OTHER ==
[~2018-02-07] MED LIST changes: +ASPI-320 PO; -AZITTAB PO; -BCPILLS PO; +ETON1IMP2; +FLVHFA110 INH; +MULT-506 PO; -PRED10TA PO; -PRENTAB26 PO
[2018-02-07 10:12] LABS: ALBUMIN 4.2 gm/dl (3.4-5.0); ALKALINE PHOSPHATASE 64 U/L (45-117); ALT/SGPT 27 U/L (12-78); AST/SGOT 22 U/L (15-37); BLOOD UREA NITROGEN 12 mg/dl (7-18); CALCIUM 8.5 mg/dl (8.5-10.1); CARBON DIOXIDE 27 mmol/L (21-32); CREATININE 0.79 mg/dl (0.60-1.20); GLUCOSE 67 mg/dl (70-99); PHOSPHORUS 3.5 mg/dl (2.5-4.9); POTASSIUM 3.9 mmol/L (3.5-5.1); SODIUM 142 mmol/L (136-145); TOTAL PROTEIN 7.1 gm/dl (6.4-8.2); TRANSFERRIN 291 mg/dl (200-360)
== END | disposition home or self-care (01) ==
LOC: C.LAB1850 07:28
PROVIDERS: ATTEND Internal Medicine Endocrinology, Diabetes & Metabolism
DX: M81.0 Age-related osteoporosis without current pathological fracture (principal)